=== PATIENT | male | born 1945 | race Caucasian/White ===

== ENCOUNTER → 2020-03-29 14:33 | Outpatient (CLI) | payer MEDICARE, SELFPAY ==
[2020-03-29 14:48] LABS: Alanine Aminotransferase 26 U/L (12-78); Albumin Level 4.6 g/dl (3.5-5.0); Albumin/Globulin Ratio 1.8 (1.1-1.8); Alkaline Phosphatase 80 U/L (38-126); Anion Gap 12.2 mEq/L (5-15); Aspartate Amino Transferase 24 U/L (17-59); Bilirubin,Total 0.6 mg/dl (0.2-1.3); Blood Urea Nitrogen 20 mg/dl (9-20); Calcium 9.9 mg/dl (8.4-10.2); Carbon Dioxide 29 mmol/L (22.0-30.0); Chloride 100 mmol/L (98-107); Chol/HDL Ratio 2.2 (1-3.5); Cholesterol 133 mg/dl (140-200); Estimated Glomerular Filt Rate 82 ml/min (>60); GFR (African American) 100 ML/MIN (>60); Globulin 2.5 g/dL (1.3-3.2); Glucose 160 mg/dl (74-100); HDL Cholesterol 61 mg/dl (40-60); Potassium 5.2 mmoL/L (3.5-5.1); Sodium 136 mmol/L (136-145); Total Protein,Serum 7.1 g/dl (6.3-8.2); Triglycerides 153 mg/dl (30-150); VLDL Cholesterol 31 mg/dL (0-40)
[2020-03-29 14:59] LABS: Direct LDL Cholesterol 65.96 mg/dL (100-129)
[2020-03-31 12:44] LABS: PSA, Free 0.26 ng/mL; Prostate Specific Ag 1.2 ng/mL (0.0-4.0)
== END ==
PROVIDERS: Visit Provider Family Medicine
DX: E11.9 Type 2 diabetes mellitus without complications (principal); E10.9 Type 1 diabetes mellitus without complications; E78.5 Hyperlipidemia, unspecified; N40.0 Benign prostatic hyperplasia without lower urinary tract symptoms
CPT/HCPCS: 80053; 80061; 83036; 84153; 84154

== ENCOUNTER → 2021-01-13 14:00 | Outpatient (CLI) | payer MEDICARE, SELFPAY ==
[2021-01-13 14:12] LABS: Alanine Aminotransferase 20 U/L (12-78); Albumin Level 4.3 g/dl (3.5-5.0); Albumin/Globulin Ratio 1.8 (1.1-1.8); Alkaline Phosphatase 65 U/L (38-126); Aspartate Amino Transferase 25 U/L (17-59); Bilirubin,Total 0.5 mg/dl (0.2-1.3); Blood Urea Nitrogen 21 mg/dl (9-20); Calcium 9.6 mg/dl (8.4-10.2); Carbon Dioxide 28 mmol/L (22.0-30.0); Chloride 106 mmol/L (98-107); Chol/HDL Ratio 2.6 (1-3.5); Cholesterol 123 mg/dl (140-200); Estimated Glomerular Filt Rate 73 ml/min (>60); GFR (African American) 88 ML/MIN (>60); Globulin 2.4 g/dL (1.3-3.2); Glucose 127 mg/dl (74-100); HDL Cholesterol 47 mg/dl (40-60); Sodium 142 mmol/L (136-145); Total Protein,Serum 6.7 g/dl (6.3-8.2); Triglycerides 104 mg/dl (30-150); VLDL Cholesterol 21 mg/dL (0-40)
[2021-01-13 14:23] LABS: Direct LDL Cholesterol 51.04 mg/dL (100-129)
[2021-01-13 14:30] LABS: T4 (Thyroxine) 4.4 ug/dl (5.53-11.0)
[2021-01-13 14:43] LABS: Prostate Specific Ag Screen 1.6 ng/ml (0.0-4.0); Thyroid Stimulating Hormone 1.45 uIU/mL (0.465-4.68)
[2021-01-13 14:46] LABS: Basophils # 0.1 K/mm3 (0-0.2); Basophils % 0.8 % (0.1-2.0); Eosinophils # 0.4 K/mm3 (0.0-0.4); Eosinophils % 5.4 % (0.1-12.0); Hematocrit 40.2 % (42.0-52.0); Hemoglobin 12.6 g/dL (14.1-18.0); Lymphocytes # 1.6 K/mm3 (0.7-4.5); Lymphocytes % 25.6 % (10-50); Mean Corpuscular HGB Conc 31.4 g/dL (31.8-35.4); Mean Corpuscular Hemoglobin 32.5 pg (27.0-31.2); Mean Corpuscular Volume 103.7 fl (80-94); Mean Platelet Volume 8.3 fl (7.4-10.4); Monocytes # 0.5 K/mm3 (0.1-1.0); Monocytes % 7.5 % (1.7-9.3); Neutrophils # 3.9 K/mm3 (1.8-7.8); Neutrophils % 60.7 % (37.0-80.0); Platelet Count 218 K/mm3 (142-424); Red Blood Count 3.88 M/mm3 (4.60-6.20); White Blood Count 6.4 K/mm3 (4.8-10.8)
== END ==
PROVIDERS: Visit Provider Family Medicine
DX: Z12.5 Encounter for screening for malignant neoplasm of prostate (principal); I10 Essential (primary) hypertension; Z79.899 Other long term (current) drug therapy
CPT/HCPCS: 80053; 80061; 84436; 84443; 85025; G0103

== ENCOUNTER → 2021-11-17 16:00 | Outpatient (CLI) | payer MEDICARE, SELFPAY ==
[2021-11-30 16:15] LABS: Testosterone,Free 4.1 pg/mL (6.6-18.1)
== END ==
PROVIDERS: Visit Provider Family Medicine
DX: Z00.00 Encounter for general adult medical examination without abnormal findings (principal); Z12.5 Encounter for screening for malignant neoplasm of prostate
CPT/HCPCS: 84402; 84403

== ENCOUNTER → 2022-12-14 09:18 | Outpatient (CLI) | payer MEDICARE, SELFPAY ==
[2022-12-14 14:41] LABS: Chloride 103 mmol/L (98-107); Potassium 5.7 mmoL/L (3.5-5.1); Sodium 140 mmol/L (136-145)
[2022-12-14 14:43] LABS: Alanine Aminotransferase 29 U/L (12-78); Anion Gap 9.7 mEq/L (5-15); Aspartate Amino Transferase 27 U/L (17-59); Blood Urea Nitrogen 22 mg/dl (9-20); Carbon Dioxide 33 mmol/L (22.0-30.0); Estimated Glomerular Filt Rate 72 ml/min (>60); GFR (African American) 87 ML/MIN (>60)
[2022-12-14 14:44] LABS: Albumin Level 4.5 g/dl (3.5-5.0); Albumin/Globulin Ratio 1.8 (1.1-1.8); Alkaline Phosphatase 65 U/L (38-126); Bilirubin,Total 0.7 mg/dl (0.2-1.3); Calcium 9.8 mg/dl (8.4-10.2); Chol/HDL Ratio 2.4 (1-3.5); Cholesterol 120 mg/dl (140-200); Globulin 2.5 g/dL (1.3-3.2); Glucose 165 mg/dl (74-100); HDL Cholesterol 49 mg/dl (40-60); Triglycerides 118 mg/dl (30-150); VLDL Cholesterol 24 mg/dL (0-40)
[2022-12-14 14:46] LABS: Creatinine,Urine Random 133 mg/dL (Not Estab.)
[2022-12-14 14:54] LABS: Basophils % 0.6 % (0.1-2.0); Eosinophils # 0.3 K/mm3 (0.0-0.4); Eosinophils % 4.2 % (0.1-12.0); Hematocrit 45.5 % (42.0-52.0); Lymphocytes # 1.7 K/mm3 (0.7-4.5); Lymphocytes % 25.2 % (10-50); Mean Corpuscular Volume 103.1 fl (80-94); Monocytes # 0.5 K/mm3 (0.1-1.0); Monocytes % 7.9 % (1.7-9.3); Neutrophils # 4.1 K/mm3 (1.8-7.8); Neutrophils % 62.1 % (37.0-80.0); Platelet Count 262 K/mm3 (142-424); Red Blood Count 4.41 M/mm3 (4.60-6.20); Red Cell Distribution Width 13.3 % (11.5-17.5); White Blood Count 6.7 K/mm3 (4.8-10.8)
[2022-12-14 14:56] LABS: Direct LDL Cholesterol 56.81 mg/dL (100-129)
[2022-12-14 15:16] LABS: Thyroid Stimulating Hormone 1.78 uIU/mL (0.465-4.68)
[2022-12-14 15:35] LABS: Prostate Specific Ag Screen 1.8 ng/ml (0.0-4.0)
[2022-12-14 15:54] LABS: Hemoglobin A1C 8.1 % (4.0-6.0)
== END ==
PROVIDERS: PCP Family Medicine; Visit Provider Family Medicine
DX: E11.9 Type 2 diabetes mellitus without complications (principal); E34.9 Endocrine disorder, unspecified; I10 Essential (primary) hypertension; Z12.5 Encounter for screening for malignant neoplasm of prostate; Z79.84 Long term (current) use of oral hypoglycemic drugs
CPT/HCPCS: 80053; 80061; 82043; 82570; 83036; 84443; 85025; G0103

== ENCOUNTER → 2022-12-28 11:59 | Outpatient (CLI) | payer MEDICARE, SELFPAY ==
--- NOTE | 2022-12-28 | CA_ITS ---
APPROVED REPORT Exam: Exercise Treadmill Technologist: Lupe Briceno, Ht: 5 ft 10 in Wt: 220 lbs BSA: 2.17 m2 HR: 84 bpm BP: 153/64 mmHg Rhythm: sinus rhythm with PACs Medical History Medical History: HTN, Hyperlipidemia Medications: Lisinopril,,,,, Metformin,,,,, Glipizide,,,,, Lipitor,,,,, Testosterone,,,,, Prolensa,,,,, Lancets,,,,, Blood GLUCOSE,,,,, Cardiac Risk Factors: Hyperlipidemia, HTN, Smoking, Diabetes (insulin) Stress Test Details Test: Nadine HR Resting HR: 91 bpm Max Heart Rate (APMHR): 142 bpm Max HR Achieved: 138 bpm Target HR (85% APMHR): 121 bpm % of APMHR: 97 Recovery HR: 128 bpm BP Resting BP: 143/65 mmHg Max BP: 179/86 mmHg Recovery BP: 165.0/63.0 mmHg ECG Resting ECG: sinus rhythm with PACs. Clinical Exercise duration: 03:50 min Highest Stage Achieved: Exercise capacity: 7.0 METs Stress ECG Conclusion During nadine protocol pt experinced SOA with exertion. No CP noted. PACs and PVCs noted with ventricular couplets. Test Summary REST . . . . . . . Resting REST . . . . . . . Standing REST 07:22 0.0 0.0 91 . 143/ 65 . . Stage 1 01:00 10.0 1.7 103 . . . . Stage 1 02:00 10.0 1.7 120 . . . . Stage 1 . . . . . . . Myoview Injected Stage 1 03:00 10.0 1.7 130 . 160/ 70 . . Stage 2 00:50 12.0 2.5 138 . . . Stop exercise at 03:50 RECOVERY 01:00 0.0 0.0 126 . 165/ 63 . . RECOVERY 02:00 0.0 0.0 123 . 165/ 63 . . RECOVERY 03:00 0.0 0.0 117 . 159/ 66 . . RECOVERY 04:00 0.0 0.0 113 . 159/ 66 . . RECOVERY 05:00 0.0 0.0 110 . 169/ 76 . . RECOVERY 06:00 0.0 0.0 105 . 169/ 76 . . RECOVERY 07:00 0.0 0.0 104 . 179/ 86 . . RECOVERY 08:00 0.0 0.0 100 . 154/ 64 . . RECOVERY 08:05 0.0 0.0 102 . 154/ 64 . . Electronically signed by : Carloz Gamboa MD 12/28/2022 15:33:02
--- NOTE | 2022-12-28 12:13 | NM_ITS ---
APPROVED REPORT Exam: Nuclear Stress Test Indication: a-fib Patient Location: Outpatient Stress Tech: Lupe Briceno [place] Tech:Laverne Molina AURORANoemí RT(R)(N) Ht: 5 ft 11 in Wt: 218 lbs HR: 91 bpm BP: 143/65 mmHg BSA: 2.19 m2 TID: 1.11 BMI: 30.4 History: a-fib Procedure: Patient exercised on Owen protocol 3:30 minutes and sec, resting heart rate 91 bpm, resting blood pressure 143/65 mmHg, with exercise maximum heart rate achived was 138 bpm which is 97 % of the maximum predicted heart rate and blood pressure was 179/86 mmHg. Test was stopped due to fatigue..soa. Patient denied any complaint of chest pain. Patient has Adequate exercise capacity, achieved 7.0 METs of workload on treadmill, the blood pressure response to exercise was Adequate. Electrocardiogram Resting electrocardiogram showed sinus rhythm, with exercise there is less than 1.[address] segment depression noted from the baseline EKG. The EKG portion of the exercise Myoview is negative for ischemia. Cardiac Stress and Resting SPECT Images: Cardiac Stress and Resting SPECT images were obtained using technetium 99m Myoview 31.4 mCi stress and 10.95 mCi at rest. Gated SPECT analysis of segmental wall motion and calculation of the ejection fraction also done. Prone images were also obtained. Cardiac stress and rest respectively show uniform myocardial activity without segmental perfusion abnormality, computer derived ejection fraction is 45% with no regional wall motion normality, right ventricle is normal size and contractility. Conclusion: 1. The EKG portion of the exercise Myoview is negative for ischemia, patient has adequate exercise capacity achieved 7 METS of workload on treadmill, the blood pressure response to exercise was adequate, there was no exercise-induced chest discomfort. 2. No scintigraphic evidence of reversible ischemia seen, computer derived ejection fraction is 45% with no regional wall motion abnormality, right ventricle is normal size and contractility. 3. Normal exercise Myoview study. Electronically signed by : Carloz Gamboa MD 12/28/2022 15:36:02
== END ==
PROVIDERS: PCP Family Medicine; Visit Provider Family Medicine
DX: R07.9 Chest pain, unspecified (principal)
CPT/HCPCS: 78452; 93017; A9502

== ENCOUNTER 2023-11-11 21:55 | Outpatient (CLI) | payer MEDICARE, SELFPAY ==
[2023-11-11 20:08] LABS: Basophils # 0.1 K/mm3 (0-0.2); Basophils % 0.6 % (0.1-2.0); Eosinophils # 0.2 K/mm3 (0.0-0.4); Hemoglobin 14.9 g/dL (14.1-18.0); Lymphocytes # 1.6 K/mm3 (0.7-4.5); Lymphocytes % 20.5 % (10-50); Mean Corpuscular HGB Conc 32.5 g/dL (31.8-35.4); Mean Corpuscular Hemoglobin 34.6 pg (27.0-31.2); Mean Corpuscular Volume 106.4 fl (80-94); Mean Platelet Volume 9.9 fl (7.4-10.4); Monocytes # 0.6 K/mm3 (0.1-1.0); Monocytes % 7.3 % (1.7-9.3); Neutrophils # 5.3 K/mm3 (1.8-7.8); Neutrophils % 68.5 % (37.0-80.0); Platelet Count 218 K/mm3 (142-424); Red Blood Count 4.32 M/mm3 (4.60-6.20); Red Cell Distribution Width 13.1 % (11.5-17.5); White Blood Count 7.8 K/mm3 (4.8-10.8)
[2023-11-11 20:37] LABS: Hemoglobin A1C 7.8 % (4.0-6.0)
[2023-11-12 12:01] LABS: Prostate Specific Ag Screen 2.1 ng/ml (0.0-4.0)
== END 2023-11-11 23:59 ==
LOC: LAB.DROPOF 21:59
PROVIDERS: PCP Family Medicine; Visit Provider Family Medicine
DX: E11.9 Type 2 diabetes mellitus without complications (principal); Z79.84 Long term (current) use of oral hypoglycemic drugs; Z12.5 Encounter for screening for malignant neoplasm of prostate
CPT/HCPCS: 83036; 85025; G0103

== ENCOUNTER 2024-09-17 19:17 | Outpatient (CLI) | payer MEDICARE, SELFPAY ==
[2024-09-17 20:33] LABS: Creatinine,Urine Random 66 mg/dL (Not Estab.)
[2024-09-17 20:46] LABS: Microalbumin < 6.000 mg/L (0-16.7)
[2024-09-17 21:02] LABS: Alanine Aminotransferase 29 U/L (12-78); Alkaline Phosphatase 63 U/L (38-126); Aspartate Amino Transferase 29 U/L (17-59); Bilirubin,Total 0.5 mg/dl (0.2-1.3); Blood Urea Nitrogen 26 mg/dl (9-20); Calcium 9.8 mg/dl (8.4-10.2); Chloride 103 mmol/L (98-107); Chol/HDL Ratio 1.9 (1-3.5); Cholesterol 100 mg/dl (140-200); Estimated Glomerular Filt Rate 58 ml/min (>60); GFR (African American) 70 ML/MIN (>60); Glucose 117 mg/dl (74-100); HDL Cholesterol 53 mg/dl (40-60); Sodium 140 mmol/L (136-145); Total Protein,Serum 6.7 g/dl (6.3-8.2); Triglycerides 96 mg/dl (30-150); VLDL Cholesterol 19 mg/dL (0-40)
[2024-09-17 21:04] LABS: Albumin Level 4.3 g/dl (3.5-5.0); Albumin/Globulin Ratio 1.8 (1.1-1.8); Carbon Dioxide 30 mmol/L (22.0-30.0); Globulin 2.4 g/dL (1.3-3.2)
[2024-09-17 21:13] LABS: Direct LDL Cholesterol 37.25 mg/dL (100-129)
[2024-09-17 21:23] LABS: Anion Gap 12.3 mEq/L (5-15); Potassium 5.3 mmoL/L (3.5-5.1)
== END 2024-09-17 23:59 | disposition home or self-care (01) ==
LOC: LAB.DROPOF 19:17
PROVIDERS: PCP Family Medicine; Visit Provider Family Medicine
DX: E11.9 Type 2 diabetes mellitus without complications (principal)
CPT/HCPCS: 80053; 80061; 82043; 82570

== ENCOUNTER 2025-05-04 10:54 | Outpatient (CLI) | payer MEDICARE, SELFPAY ==
--- OUTSIDE RECORDS SUMMARY | 2025-05-04 10:56 | XMS_ITS | Encounter Summary ---
Author Organization [facility] Address [address] [place] [address] Care Team Providers Care Clerk Of Court Name Role Phone Yusuf Lind MD Primary Care Provider Stacia Bravo RN Unavailable [phone] Yobani Rosario MD Unavailable Oly Albert HEALTHCARE ECONOMICS CONSULTANT Unavailable [phone] Luiz Roberts MD Unavailable [phone] Rina Youssef HEALTHCARE ECONOMICS CONSULTANT Unavailable Unavailable Grady Longoria MD Unavailable [phone] Encounter Details Date Type Department Care Team (Late st Contact Info) Description 09/21/2021 E-Visit [facility] Information Desk [address] [place] [address] [id number] Mychart, Generic Provider Social History Tobacco Use Types Packs/Day Years Used Date Smoking Tobacco: Former Cigars Smokeless Tobacco: Never Comments:quit smoking cigars about 2 years ago Alcohol Use Standard Drinks/Week Comments Yes 11.7 (1 standard drink = 0.6 oz pure alcohol) daily PHQ-2 Answer Date Recorded PHQ-9 Auto Total 0 06/24/2020 Sex and Gender Information Value Date Recorded Sex Assigned at Male 06/23/2020 9:46 AM EDT Legal Sex Male 11:13 AM EDT Gender Identity Male 06/23/2020 9:46 AM EDT Sexual Orientation Not on file COVID-19 Exposure Response Date Recorded In the last month, have you been in contact with someone who was confirmed or suspected to have Coronavirus / COVID-19? No / Unsure 09/21/2021 3:00 PM EST documented as of this encounter Plan of Treatment Not on file documented as of this encounter Visit Diagnoses Not on filedocumented in this encounter Additional Health Concerns Assessment Noted Time PHQ-9 Depression Total Score: 1 06/24/20 20 12:58 PM EDT documented as of this encounter Care Teams Clerk Of Court Relationship Specialty Start Date End Date Yusuf Lind MD [address] [place] [address] [address] [place] [address] PCP - General Internal Medicine 06/24/20 Stacia Bravo, JOANA [address] [facility] [place] [address] Registered Nurse 08/13/21 Yobani Rosario MD [address] [place] [address]. [address] [place] [address] Critical Care Medicine 08/23/21 Oly Albert NP [address] [place] [address] Nurse Practitioner Nurse Practitioner, Acute Care 09/22/21 Luiz Roberts MD [address] [place] [address] [address] [place] [address] Interventional Cardiology 10/20/21 Rina Youssef NP [address] [place] [address] [address] [place] [address] Nurse Practitioner Nurse Practitioner, Acute Care 10/26/21 Grady Longoria MD [address] [place] [address] [place] [address] Orthopedic Surgery 10/14/22 documented as of this encounter
--- OUTSIDE RECORDS SUMMARY | 2025-05-04 10:57 | XMS_ITS | Clinical Summary ---
Author Organization [facility] Address [address] [place] [address] Care Team Providers Care Creative Consultant Name Role Phone Yusuf Lind MD Primary Care Provider [phone] Stacia Bravo RN Unavailable [phone] Yobani Rosario MD Unavailable [phone] Oly Albert SPORTS BOOK WRITER Unavailable [phone] Luiz Roberts MD Unavailable [phone] Rina Youssef SPORTS BOOK WRITER Unavailable Unavailable Grady Longoria MD Unavailable [phone] Allergies Active Allergy Reactions Criticality Noted Date Comments Oxycodone-Acetaminop hen Nausea Only,Other (See Comments) 09/11/2016 I slept continually. -nausea occurred upon standing Oxycodone-Aspirin Nausea Only,Other (S ee Comments) 09/11/2016 I slept continually. -nausea occurred upon standing Medications Accu-Chek Desire Plus test strp Strip TEST BID 0 Active glipiZIDE (GLUCOTROL) 10 mg CR tablet daily. 0 Active metFORMIN (GLUCOPHAGE) 500 mg tablet 1,000 mg 2 times daily. 0 Active pioglitazone (ACTOS) 15 mg Tablet Take 1 Tab by mouth daily. 90 Tab 1 0 Active Additional Information Patient not taking.Reported on 10/31/2021 lisinopriL (PRINIVIL, ZESTRIL) 20 mg tablet 0 Active aspirin 81 mg tablet Take 1 Tablet (81 mg total) by mouth daily. 100 Tablet 1 Active atorvastatin (LIPITOR) 40 mg Tablet Take 1 Tablet by mouth every evening. 30 Tablet 1 Active Active Problems Problem Noted Date Diagnosed Date TIA (transient ischemic attack) 10/31/2021 Benign essential hypertension 10/31/2021 Type 2 diabetes mellitus wit hout complication, without long-term current use of insulin 07/11/2020 Hypercholesterolemia 07/11/2020 Generalized osteoarthritis of multiple sites 02/2020 Dysgeusia 07/11/2020 S/P bilateral hip replacements 07/11/2020 Primary osteoarthritis of right hip 09/17/2016 Resolved Problems Problem Noted Date Diagnosed Date Resolved Date Stroke-like symptom 08/13/2021 11/13/19 22 Stroke-like symptoms 08/13/2021 022 Immunizations Immunization Administration Dates Next Due Covid19 Sars-Cov-2 Vaccine 1 2+yrs Old (PFIZER) 07/23/2022 [id number] Vaccine 1 2+YRS Old (PFIZER Purple) 07/18/2021,07/18/2021,07/08/2021,2020,12/24/2020,12/08/2020,12/03/2020,0 12/03/2020 Influenza 07/23/2022, 1,07/07/2021,2019,07/07/2014 Influenza (whole) 07/07/2014 Influenza, High Dose Seasona l, Preservative Free (Fluzone HD 65yrs and over) 06/08/2020 Pneumococcal 20-valent Conju gate Vaccine (PREVNAR) 10/31/2021 Pneumococcal Conjugate 13 va lent (PREVNAR) 11/05/2020 Family History Medical History Relation Name Comments No Known Problems Father No Known Problems Mother Anesthesia Complications Neg Hx Heart Problems Neg Hx Relation Name Status Comments Father Mother Social History Tobacco Use Types Packs/Day Years Used Date Smoking Tobacco: Former Cigars Smokeless Tobacco: Never Tobacco Cessation:Counseling Given: Yes Comments:quit smoking cigars about 2 years ago Alcohol Use Standard Drinks/Week Comments Yes 11.7 (1 standard drink = 0.6 oz pure alcohol) daily PHQ-2 Answer Date Recorded PHQ-9 Auto Total 0 10/31/2021 Sex and Gender Information Value Date Recorded Sex Assigned at Male 06/23/2020 9:46 AM EDT Legal Sex Male 11:13 AM EDT Gender Identity Male 06/23/2020 9:46 AM EDT Sexual Orientation Not on file Last Filed Vital Signs Vital Sign Reading Time Taken Comments Blood Pressure 110/70 09/22/2021 11:57 AM EST Pulse 76 09/22/2021 11:57 AM EST Temperature 36.4 C (97.6 F) 09/22/2021 11:57 AM EST Respiratory Rate 12 09/22/2021 11:57 AM EST Oxygen Saturation 95% 09/22/2021 11:57 AM EST Inhaled Oxygen Concentration - - Weight 100.2 kg (221 lb) 10/31/2021 2:41 PM EST Height 170.2 cm (5' 7 ) 10/31/2021 2:41 PM EST Body Mass Index 34.61 10/31/2021 2:41 PM EST Plan of Treatment Health Maintenance Due Date Last Done Comments Diabetes Mellitus Foot Care (Yearly) 1944 Diabetes Mellitus Microalbum in (Yearly) 1944 Tetanus Vaccination (Every 1 0 Years) 1962 Zoster-RZV(Shingrix) (1 of 2) 1994 RSV Vaccines (1 - 1-dose 75+ series) 2019 Diabetes A1c Monitoring 02/11/2022 08/14/2021, 07/27 Lipid Monitoring 08/14/2022 08/14/2021, 07/27/2020 Renal Monitoring 08/15/2022 08/15/2021, 05/2021, 08/13/2021, Additional history exists Fall Risk Assessment 10/31/2022 10/31/2021 COVID-19 Vaccine ( season) 2024 07/23/2022, 07/18/2021, 07/18/2021, Additional history exists Advance Care Planning 10/07/2024 Depression Screening 10/07/2024 10/31/2021, 06/24/20 20 Influenza Vaccination (#1) 06/07/202507/23, 09/21/2021, 07/07/2021, Additional history exists Diabetes Mellitus Hemoglobin A1c (Yearly) Discontinued 08/14/2021, 07/27/2020 Lipid Screening Discontinued 08/14/2021, 07/27/2020 Pneumococcal Vaccine: 50+ Years Completed , 11/05/2020 Influenza Vaccination (Yearly) Discontinued 1 , 09/21/2021, 07/07/2021, Additional history exists Medical Devices Implanted Type Area Disability Hearing Officer Device Identifier Shelf Expiration Date Model / Serial / Lot Altrx Acetabular Liner 36mm Implanted:Qty: 1 on 07/06/2014 by Grady Longoria MD at [facility] Left: Hip 04/05/2019 1221-36-154 / / [id number] Pinn Sector W/Gription 54mm Implanted:Qty: 1 on 07/06/2014 by Grady Longoria MD at [facility] Left: Hip * J \T\ J DEPUY 06/06/2024 1217-32-054 / / [id number] Femoral Stem Tri-Lock 09/19 109mm Implanted:Qty: 1 on 07/06/2014 by Grady Longoria MD at [facility] Left: Hip * USE JJ DEPU 05/06/2024 1012-04-070 / / [id number] Hip Delta Cer Hd 09/19 36mm Implanted:Qty: 1 on 07/06/2014 by Grady Longoria MD at [facility] Left: Hip * J \T\ J DEPUY 03/06/2019 [id number] / / [id number] Hip Total Con Tier 3 Depuy Implanted:Qty: 1 on 07/06/2014 by Grady Longoria MD at [facility] Left: Hip * J \T\ J DEPUY HIPS TIER 3 / / TOTAL HIP Pinn Sector W/Gription 54mm Implanted:Qty: 1 on 09/19/2016 by Grady Longoria MD at [facility] Right: Hip * J \T\ J DEPUY 07/06/2026 [id number] / / [id number] Altrx Acetabular Liner 36mm Implanted:Qty: 1 on 09/19/2016 by Grady Longoria MD at [facility] Right: Hip * J \T\ J DEPUY 07/06/2021 [id number] / / [id number] Stem Fem Std Collar Corail 12 Implanted:Qty: 1 on 09/19/2016 by Grady Longoria MD at [facility] Right: Hip * J \T\ J DEPUY 07/06/2021 [id number] / / [id number] Hd Oxinium Fem 09/19 36 Mm -3 Implanted:Qty: 1 on 09/19/2016 by Grady Longoria MD at [facility] Right: Hip * SUN \T\ NEPHEW 07/24/2026 [id number] / / [id number] Procedures Procedure Name Priority Date/Time Associated Diagnosis Comments BASIC METABOLIC PANEL (BMP=EP1) Routine 08/15/2021 1:42 PM EST LIPID PROFILE Routine 08/14/2021 4:46 AM EST HGB, A1C (GLYCOHEMOGLOBIN) Routine 08/14/2021 4:46 AM EST from Last 3 Months or Most Recently Relevant to Health Maintenance Results * (ABNORMAL) BASIC METABOLIC PANEL (BMP=EP1) (08/15/2021 1:42 PM EST) Sodium 139 135 - 146 mmol/L [facility] Potassium 4.8 3.5 - 5.1 mmol/L [facility] Chloride 103 98 - 110 mmol/L [facility] CO2 28 22 - 29 mmol/L [facility] Anion Gap 8 5 - 13 mmol/L [facility] Comment:Anion gap calculatio n does not include potassium (K+) value. BUN 20 7 - 25 mg/dL [facility] Creatinine 1.13 0.50 - 1.30 mg/dL [facility] Glucose 169(H) 71 - 99 mg/dL [facility] GFR MDRD Af Amer 76 See Note [facility] Comment: GFR is estimated using Creatinine, age, gender and race. Patient's values should be interpreted as a trend. Between 30 and 90 ml/min/1.73m2, clinical correlation is needed. For additional information: www.kidney.org Calcium 9.8 8.8 - 10.9 mg/dL [facility] GFR MDRD Non Af Amer 63 See Note [facility] Comment: GFR is estimated using Creatinine, age, gender and race. Patient's values should be interpreted as a trend. Between 30 and 90 ml/min/1.73m2, clinical correlation is needed. For additional information: www.kidney.org BUN/Creatinine Ratio 18 [facility] Serum 08/15/2021 1:42 PM EST 08/15/2021 2:45 PM EST us Jairon Fu MD CHEMISTRY ORDERABLES Final Result Performing Organization Address City/State/[facility] Co de Phone Number [facility] [address] * (ABNORMAL) LIPID PROFILE (08/14/2021 4:46 AM EST) Chol/HDL Ratio 2.4 0 - 5 [facility] Cholesterol 104(L) 125 - 199 mg/dL [facility] Comment: TOTAL CHOLESTEROL INTERPRETATION: Less than 200 mg/dL Desireable 200-239 mg/dL Borderline Greater or Equal to 240 mg/dL High LDL Calculated 48 0 - 100 mg/dL [facility] Comment: LDL CHOLESTEROL INTERPRETATION: Less than 100 mg/dL Optimal 100-129 mg/dL Near optimal/above optimal 130-159 mg/dL Borderline High 160-189 mg/dL High Greater or Equal to 190 mg/dL Very High HDL 44 40 - 180 mg/dL [facility] Comment: HDL CHOLESTEROL INTERPRETATION: Less than 40 mg/dL Low Greater than 60 mg/dL Desirable Triglycerides 62 0 - 149 mg/dL [facility] Comment: TOTAL TRIGLYCERIDE INTERPRETATION: Less than 150 mg/dL Normal 150-199 mg/dL Borderline HIgh 200-499 mg/dL High Greater or Equal to 500 mg/dL Very High Serum 08/14/2021 4:46 AM EST 08/15/2021 1:56 PM EST us Yobani Rosario MD CHEMISTRY ORDERABLES F inal Result Performing Organization Address [facility] Co de Phone Number [facility] [address] * (ABNORMAL) HGB, A1C (GLYCOHEMOGLOBIN) (08/14/2021 4:46 AM EST) Hgb A1C 7.1(H) 4.0 - 5.6 % [facility] Comment: Reference Ranges for Hgb A1c: Increased risk for diabetes: 5.7-6.4% Probable diabetes: >=6.5% Desired control for previously diagnosed diabetics: <7.0% Many conditions can affect the Hgb A1c value including hemolysis, recent transfusion, hemoglobin variants, thalassemias, severe chronic hepatic and renal disease and iron deficiency among others. Please note that results from this assay are invalid for patients with abnormal amounts of Hemoglobin (HbF). Results must be interpreted in the proper clinical context. This method is certified by the National Glycohemoglobin Standardization program (NGSP) and traceable to [facility]. Estimated Average Glucose 157(H) 68 - 114 mg/dL [facility] Whole Blood 08/14/2021 4:46 AM EST 08/15/2021 1:57 PM EST us Jairon Fu MD CHEMISTRY ORDERABLES Final Result Performing Organization Address [facility] de Phone Number [facility] [address] from Last 3 Months or Most Recently Relevant to Health [place] [address] [place] [address] [facility] MEDICARE HUMANA MEDICARE HUMANA MEDICARE HUMANA MEDICARE ANTHEM MEDICARE ANTHEM Advance Directives For more information, please contact: [phone] * Full Code (Latest Code Status on File) Date Activated Date Inactivated Comments 08/13/2021 8:18 PM No automated c hest compression devices for VAD Patients * Full Code Date Activated Date Inactivated Comments 09/19/2016 9:55 AM 09/20/2016 4:07 PM * Full Code Date Activated Date Inactivated Comments 07/06/2014 10:42 AM 07/07/2014 7:06 PM Care Teams Creative Consultant Relationship Specialty Start Date End Date Yusuf Lind MD [address] [place] [address] PCP - General Internal Medicine 06/24/20 Stacia Bravo, JOANA [address] [place] [address] Registered Nurse 08/13/21 [place] [address] [place] [address] [address] [place] [address] Critical Care Medicine 08/23/21 [place] [address] [place] [address]. [address] [place] [address] Nurse Practitioner Nurse Practitioner, Acute Care 09/22/21 Luiz Roberts MD [address] [place] [address] [address] [place] [address] Interventional Cardiology 10/20/21 Rina Youssef NP [address] [place] [address] [address] [place] [address] Nurse Practitioner Nurse Practitioner, Acute Care 10/26/21 Grady Longoria MD [address] [facility] [place] [address] [place] [address] Orthopedic Surgery 10/14/22
--- NOTE | 2025-05-04 10:58 | XR_ITS ---
FINAL REPORT CLINICAL HISTORY: Left knee pain FINDINGS: AP, lateral and oblique views of the left knee were obtained. There is no prior exam for comparison. There is no acute fracture or dislocation. There is degenerative joint disease. There is no acute soft tissue abnormality. There is no joint effusion. IMPRESSION: Degenerative joint disease without acute osseous abnormality of the left knee. Reviewed, Interpreted and Dictated by Chandrika Lopez MD Transcribed by Tammi Fried Authenticated and [facility]
--- OUTSIDE RECORDS SUMMARY | 2025-05-04 10:58 | XMS_ITS | Encounter Summary ---
Author Organization [facility] Address [address] [place] [address] Care Team Providers Care Candy Butcher Name Role Phone Amanuel Staples MD Primary Care Provider Yusuf Lind MD Primary Care Provider [phone] Stacia Bravo RN Unavailable [phone] Yobani Rosario MD Unavailable Oly Albert SENIOR NET APPLICATION DEVELOPER Unavailable [phone] Luiz Roberts MD Unavailable [phone] Rian Youssef SENIOR NET APPLICATION DEVELOPER Unavailable Unavailable Grady Longoria MD Unavailable [phone] Reason for Visit * Reason Onset Date Comments Questions 05/01/2013 Encounter Details Date Type Department Care Team (Late st Contact Info) Description 05/01/2013 Telephone [facility] [address] [facility] [address] [place] [address] Celeste Lange MD [address] [facility] [address] [place] [address] Questions Social History Tobacco Use Types Packs/Day Years Used Date Smoking Tobacco: Never Alcohol Use Standard Drinks/Week Comments Not Asked 0 (1 standard drink = 0.6 oz pur e alcohol) Sex and Gender Information Value Date Recorded Sex Assigned at Male 06/23/2020 9:46 AM EDT Legal Sex Male 11:13 AM EDT Gender Identity Male 06/23/2020 9:46 AM EDT Sexual Orientation Not on file documented as of this encounter Miscellaneous Notes * Telephone Encounter - La Rangel - 05/01/2013 5:01 PM EDT rx called in * Telephone Encounter - Celeste Lange MD - 05/01/2013 4:57 PM EDT Please call in vicodin 1 tablet twice a day quant of 60 tabs to his pharmacy * Telephone Encounter - Diann Salter - 05/01/2013 9:44 AM EDT HE HAS BEEN TAKING TRAMADOL EVERY 6 HOURS AND THIS IS NOT HELPING WITH PAIN CONTROL. HE HAD TO GET UP IN THE MIDDLE OF THE NIGHT TO TAKE A PILL. HE WOULD LIKE TO KNOW IF THERE IS SOMETHING ELSE HE COULD TRY? documented in this encounter Plan of Treatment Not on file documented as of this encounter Visit Diagnoses Not on filedocumented in this encounter Care Teams Candy Butcher Relationship Specialty Start Date End Date Amanuel Staples MD [address] [place] [address] PCP - General Family Medicine 03/13/13 06/23/20 Yusuf Lind MD [address] [place] [address] PCP - General Internal Medicine 06/24/20 Stacia Bravo, JOANA [address] [place] [address] Registered Nurse 08/13/21 Yobani Rosario MD [address] [place] [address] [address] [place] [address] Critical Care Medicine 08/23/21 Oly Albert NP [address] [place] [address] [place] [address] Nurse Practitioner Nurse Practitioner, Acute Care 09/22/21 Luiz Roberts MD [address] [place] [address] [address] [place] [address] Interventional Cardiology 10/20/21 Rina Youssef NP [address] [place] [address] [address] [place] [address] Nurse Practitioner Nurse Practitioner, Acute Care 10/26/21 Grady Longoria MD [address] [facility] [place] [address] Orthopedic Surgery 10/14/22 documented as of this encounter
--- OUTSIDE RECORDS SUMMARY | 2025-05-04 10:58 | XMS_ITS | Clinical Summary ---
Author Organization [facility] Address [address] [place], [place] [address] Phone Care Team Providers Care Supervisor Pre Wave Name Role Phone Outside, Provider Unavailable [phone] Conditions or Problems No information available. Medications No information available. Medications Administered No information available. Allergies, Adverse Reactions, Alerts No information available. Results No information available. Plan of Care No information available. Procedures No information available. Vital Signs No information available. Immunizations No information available. Advance Directives No information available.
--- OUTSIDE RECORDS SUMMARY | 2025-05-04 10:58 | XMS_ITS | Clinical Summary ---
Author Organization [facility] Address [address] [place] [id number] Care Team Providers Care Clinical Coordinator Name Role Phone Pcp, No Primary Care Provider [phone] Source Comments This information has been disclosed to you from confidential records protectedfrom disclosure by state law. You shall make no further disclosure of thisinformation without the specific, written, and informed release of theindividual to whom it pertains, or as otherwise permitted by law. A generalauthorization for the release of medical or other information is not sufficientfor the purposes of therelease of HIV test results or diagnoses. [id number] Allergies Active Allergy Reactions Criticality Noted Date Comments Oxycodone-Acetaminop hen Nausea Only,Other (See Comments) 09/11/2016 I slept continually. -nausea occurred upon standing Medications atorvastatin (LIPITOR) 20 MG tablet 11/05/2018 Active glipiZIDE (GLUCOTROL) 10 MG 24 hr tablet 01/09/2019 Act gail lisinopril (PRINIVIL,ZESTRI L) 20 MG tablet 12/11/2018 Act gail metFORMIN (GLUCOPHAGE) 850 MG tablet 11/19/2018 Active multivit-min/connie luz fumarate (MULTI VITAMIN ORAL) Take by mouth. Active cinnamon bark (CINNAMON) 500 mg capsule Take 500 mg by mouth daily. Active Social History Tobacco Use Types Packs/Day Years Used Date Smoking Tobacco: Former Cigarettes Q uit: 01/16/1984 Smokeless Tobacco: Former Quit: 01/15/1989 Alcohol Use Standard Drinks/Week Comments Yes 0 (1 standard drink = 0.6 oz pur e alcohol) Sex and Gender Information Value Date Recorded Sex Assigned at Not on file Legal Sex Male 7:53 PM EST Gender Identity Not on file Sexual Orientation Not on file Last Filed Vital Signs Vital Sign Reading Time Taken Comments Blood Pressure 177/70 01/15/2019 10:24 AM EDT Pulse 66 01/15/2019 10:24 AM EDT Temperature - - Respiratory Rate - - Oxygen Saturation - - Inhaled Oxygen Concentration - - Weight 101.6 kg (224 lb) 01/15/2019 10:24 AM EDT Height 180.3 cm (5' 11 ) 01/15/2019 10:24 AM EDT Body Mass Index 31.24 01/15/2019 10:24 AM EDT Plan of Treatment [place] [address] [employer] MEDICARE Care Teams Clinical Coordinator Relationship Specialty Start Date End Date Pcp, No No Address PCP - General Pediatrics 01/15/19
--- OUTSIDE RECORDS SUMMARY | 2025-05-04 10:59 | XMS_ITS | Continuity of Care Document ---
Author Organization [facility] Address [facility] [place] [address] Phone Care Team Providers Care Document Management Analyst Name Role Phone Sajan Alex MD Primary Care Provider [phone] Encounters Date Type Department Care Team Description 09/23/2024 2:00 PM EST Office Visit [facility] [address] [place] [address] Atif Burnett MD Photoaging of skin (Primary Dx); Screening for skin cancer; Lentigines; SK (seborrheic keratosis); Kemp angioma; History of basal cell carcinoma; History of squamous cell carcinoma; AK (actinic keratosis) 09/20/2024 Travel 09/01/2024 Orders Only [facility] [address] [address] Rosic, Jayy, CLINICAL TEAM MANAGER Obstructive sleep apnea (Primary Dx) 09/01/2024 Orders Only [facility] [address] [address] Rosic, Jayy, CLINICAL TEAM MANAGER Obstructive sleep apnea (Primary Dx) 08/31/2024 2:00 PM EST Office Visit [facility] [address] [address] Rosic, Jayy, CLINICAL TEAM MANAGER Obstructive sleep apnea (Primary Dx); Tiredness; Essential hypertension 08/28/2024 Travel 08/05/2024 Orders Only [facility] NPTFTT [address] [place] [phone] Corinne Calvin PA-C Low testosterone in male; Hypogonadism male; Low libido 08/05/2024 3:00 PM EDT Clinical Support [facility] NP[facility] [address] [place] [phone] Suzanne Quijano MA 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) 08/04/2024 Travel 07/31/2024 Refill [facility] [address] [address] Corinne Calvin PA-C Medication Refill 07/23/2024 3:30 PM EDT Office Visit [facility] [address] [address] Corinne Cavlin PA-C 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); Hypogonadism male; Low libido 07/19/2024 Travel 04/22/2024 2:00 PM EDT Office Visit [facility] [address] [phone] Everett Webster PA Hypogonadism 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) 04/21/2024 Travel 04/02/2024 8:45 AM EDT Office Visit [facility] [address] [place] [address] Atif Burnett MD Photoaging of skin (Primary Dx); AK (actinic keratosis); Lentigines; Seborrheic keratoses; Sebaceous gland hyperplasia; Kemp angioma; History of basal cell carcinoma; History of squamous cell carcinoma; Screening for skin cancer 03/31/2024 Travel 03/12/2024 8:10 AM EDT - 03/12/2024 11:59 PM EDT Hospital Encounter [facility] [address] [place] [address] Low testosterone in male Discharge Disposition: Home or Self Care 02/05/2024 Orders Only [facility] [address] [address] Warning, Everett A, PA 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) 02/03/2024 9:12 AM EDT - 02/03/2024 11:59 PM EDT Hospital Encounter [facility] [address] [address] Low testosterone in male Discharge Disposition: Home or Self Care 01/29/2024 Orders Only [facility] NPTF[facility] [address] [place] [address] Warning, Everett A, PA Low libido (Primary Dx); Low testosterone in male 01/27/2024 9:31 AM EDT - 01/27/2024 11:59 PM EDT Hospital Encounter [facility] [address] [address] Low libido Discharge Disposition: Home or Self Care 01/22/2024 1:30 PM EDT Office Visit [facility] NPT[facility] [address] [place] [phone] Warning, Everett A, PA Low libido (Primary Dx) 01/19/2024 Travel 10/03/2023 9:00 AM EST Office Visit [facility] [address] [place] [address] Atif Burnett MD Photoaging of skin (Primary Dx); Screening for skin cancer; History of basal cell carcinoma; History of squamous cell carcinoma; AK (actinic keratosis); Lentigines; Seborrheic keratoses; Sebaceous gland hyperplasia; Kemp angioma; Inflamed skin tag; Other disturbances of skin sensation 09/29/2023 Travel 08/23/2023 Orders Only [facility] Sleep Disorder Center [address] [place] [address] Rosic, Jayy, CLINICAL TEAM MANAGER Obstructive sleep apnea (Primary Dx) 08/23/2023 7:45 AM EST Office Visit [facility] [address] [address] Rosic, Jayy, CLINICAL TEAM MANAGER Obstructive sleep apnea (Primary Dx); Tiredness; Hyperlipidemia, unspecified hyperlipidemia type 08/20/2023 Travel 01/25/2023 11:00 AM EDT Office Visit [facility] [address] [address] Atif Burnett MD Neoplasm of unspecified behavior of bone, soft tissue, and skin (Primary Dx); AK (actinic keratosis); History of squamous cell carcinoma; Photoaging of skin; Lentigines; Seborrheic keratoses; Kemp angioma; History of basal cell carcinoma; Sebaceous gland hyperplasia 01/20/2023 Travel 08/15/2022 9:40 AM EST Anesthesia Event [facility] [address] [place] [address] Jonah Riggs MD Giles Lucía Flynn, DYE HOUSE WORKER 08/15/2022 Travel 08/15/2022 9:30 AM EST - 08/15/2022 9:45 AM EST Surgery [facility] [address] [place] [address] Dash Hartley MD CATARACT EXTRACTION WITH PHACOEMULSIFICATION AND INTRAOCULAR LENS 08/15/2022 8:30 AM EST - 08/15/2022 10:27 AM EST Hospital Encounter [facility] [address] 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) 08/10/2022 2:00 PM EDT Office Visit [facility] [address] [address] Roselli, Jayy, CLINICAL TEAM MANAGER Obstructive sleep apnea (Primary Dx); Tiredness; Type 2 diabetes mellitus without complication, unspecified whether terminal press operator insulin use (HCC); Essential hypertension 07/27/2022 8:15 AM EDT Office Visit [facility] [address] [place] [address] Atif Burnett MD Neoplasm of unspecified behavior of bone, soft tissue, and skin (Primary Dx); Actinic keratosis; Lentigines; Seborrheic keratoses; Sebaceous gland hyperplasia; Kemp angioma; History of basal cell carcinoma; History of squamous cell carcinoma; Photoaging of skin 06/13/2022 Travel 06/13/2022 7:30 AM EDT - 06/13/2022 7:45 [place] [address] Dash Hartley MD CATARACT EXTRACTION WITH PHACOEMULSIFICATION AND INTRAOCULAR LENS 06/13/2022 7:30 AM EDT [place] [address] Yusuf Barron MD Costantini, Carey H, MD 06/13/2022 6:35 AM EDT - 06/13/2022 8:23 AM EDT Hospital Encounter [facility] [place] [phone] Dash Hartley MD Discharge Disposition: Home or Self Care 06/08/2022 Travel 01/25/2022 8:30 AM EDT Office Visit [facility] [address] [address] Atif Burnett MD Inflamed seborrheic keratosis (Primary Dx); Other disturbances of skin sensation; Actinic keratosis; History of basal cell carcinoma; History of squamous cell carcinoma; Screening for skin cancer; Photoaging of skin; Lentigines; Seborrheic keratoses; Sebaceous gland hyperplasia; Kemp angioma; Neoplasm of unspecified behavior of bone, soft tissue, and skin 10/17/2021 2:45 PM EST Office Visit [facility] [address] [address] Corinne Zaragoza MD Obstructive sleep apnea (Primary Dx) 09/04/2021 Travel 09/04/2021 2:00 PM EST Clinical Support [facility] [address] [address] Atif Burnett MD Visit for suture removal (Primary Dx) 08/28/2021 2:00 PM EST Procedure visit [address] [place] [address] Atif Burnett MD 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) 08/03/2021 Orders Only [facility] [address] [address] Atif Burnett MD AK (actinic keratosis) (Primary Dx) 07/27/2021 Travel 07/27/2021 8:00 AM EDT Office Visit [facility] [address] [place] [address] Atif Burnett MD Neoplasm of unspecified behavior of bone, soft tissue, and skin (Primary Dx); Actinic keratosis; Kemp angioma; Lentigines; Screening for skin cancer; Photoaging of skin; History of basal cell carcinoma; History of squamous cell carcinoma; Sebaceous gland hyperplasia 01/19/2021 Travel 01/19/2021 9:00 AM EDT Procedure visit [address] [address] Atif Burnett MD Keratoacanthoma (Primary Dx); AK (actinic keratosis); Lentigines; Kemp angioma; Sebaceous gland hyperplasia; Photoaging of skin; Screening for skin cancer 01/04/2021 Orders Only [address] [address] Atif Burnett MD 12/29/2020 Travel 12/29/2020 9:45 AM EDT Office Visit [address] [address] Atif Burnett MD Neoplasm of unspecified behavior of bone, soft tissue, and skin (Primary Dx) 12/02/2020 Travel 10/12/2020 8:45 AM EST Office Visit [facility] [address] [address] Tammi Finch APRN Obstructive sleep apnea (Primary Dx); Obstructive sleep apnea (adult) (pediatric); Type 2 diabetes mellitus without complication, unspecified whether [place] insulin use (HCC); Essential hypertension; Obesity (BMI 30.0-34.9); IVET (obstructive sleep apnea) 08/15/2020 Travel 08/15/2020 9:15 AM EST Procedure visit [facility] [address] [place] [address] Atif Burnett MD 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); Basal cell carcinoma (BCC) of back; 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; 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; Basal cell carcinoma (BCC) of left shoulder 08/03/2020 Telephone [facility] [address] [facility] [address] [facility] [address] [place] [phone] Atif Burnett MD Other 07/31/2020 Travel 07/31/2020 6:30 PM EDT - 07/31/2020 11:59 PM EDT Hospital Encounter [facility] Sleep Disorder Center [place] [address] [place] [phone] [facility] Obstructive sleep apnea (Primary Dx) Discharge Disposition: Home or Self Care 07/27/2020 Orders Only [facility] [address] [place] [address] Atif Burnett MD 07/27/2020 Orders Only [facility] [address] [place] [address] Atif Burnett MD 07/27/2020 Orders Only [facility] [address] [place] [address] Atif Burnett MD 07/27/2020 Orders Only [facility] [address] [place] [address] Atif Burnett MD 07/27/2020 Orders Only [facility] [address] [place] [address] Atif Burnett MD 07/27/2020 Orders Only [facility] [address] [place] [address] Atif Burnett MD 07/27/2020 Travel 07/27/2020 3:00 PM EDT Office Visit [facility] [address] [place] [address] Atif Burnett MD Neoplasm of unspecified behavior of bone, soft tissue, and skin (Primary Dx); Screening for skin cancer; SK (seborrheic keratosis); Lentigines; AK (actinic keratosis); History of basal cell carcinoma; History of squamous cell carcinoma; Kemp angioma; Sebaceous gland hyperplasia; Photoaging of skin 07/19/2020 Orders Only [facility] Sleep Disorder [address] [place], [place] [phone] Corinne Zaragoza MD Obstructive sleep apnea (adult) (pediatric) (Primary Dx) 07/18/2020 Orders Only [facility] Sleep Disorder [address] [place], [place] [id number] Corinne Zaragoza MD Obstructive sleep apnea (Primary Dx) 07/12/2020 12:45 PM EDT Office Visit [facility] [address] [phone] Corinne Zaragoza MD Type 2 diabetes mellitus without complication, unspecified whether terminal press operator insulin use (HCC) (Primary Dx); Essential hypertension; Obstructive sleep apnea 07/07/2019 3:45 PM EDT Office Visit [facility] [address] [address] Corinne Zaragoza MD Obstructive sleep apnea (Primary Dx); Obesity (BMI 30.0-34.9); Type 2 diabetes mellitus without complication, unspecified whether terminal press operator insulin use (HCC); Essential hypertension 12/12/2018 2:30 PM EST - 12/12/2018 11:59 PM EST Hospital Encounter [facility] [address] [phone] 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) Discharge Disposition: Home or Self Care 06/17/2018 1:15 PM EDT Office Visit [facility] [address] [address] Corinne Zaragoza MD Obstructive sleep apnea (Primary Dx); Obesity (BMI 30.0-34.9); Type 2 diabetes mellitus with complication, unspecified whether [facility] insulin use (HCC) 07/10/2017 Telephone [facility] [address] [facility] [address] [address] Chance Costa MD Follow-up 07/10/2017 11:30 AM EDT - 07/10/2017 11:59 PM EDT Hospital Encounter [facility] Physical Therapy [address] [phone] Yovani Skinner, PT Localized osteoarthritis of left knee Discharge Disposition: Home or Self Care 06/03/2017 12:30 PM EDT Office Visit [facility] [address] [place] [address] Chance Costa MD Disturbance of smell and taste (Primary Dx); Type 2 diabetes mellitus with complication, unspecified [facility] insulin use status 05/21/2017 10:00 AM EDT Office Visit [facility] [address] [place] [address] Coirnne Zaragoza MD Obstructive sleep apnea (Primary Dx); Essential hypertension; Obesity (BMI 30.0-34.9) 04/15/2017 1:15 PM EDT Office Visit [facility] [address] [facility] [address] [place] [address] Mamadou Ring MD Disturbance of smell and taste (Primary Dx); Abnormal auditory perception of both ears 02/26/2017 9:37 AM EDT - 02/26/2017 11:59 PM EDT Hospital Encounter [facility] [address] [place] [address] H/O asbestos exposure Discharge Disposition: Home or Self Care 02/19/2017 Abstract [facility] [address] [place] [address] Soraya Clarke, ORACLE IDENTITY MANAGEMENT CONSULTANT 02/19/2017 8:00 AM EDT - 02/19/2017 11:59 PM EDT Hospital Encounter [facility] [address] [place] [address] Discharge Disposition: Home or Self Care 08/03/2016 Telephone [facility] [address] [place] [phone] Colton Barker MD Cardiology Clearance 08/01/2016 Telephone [facility] [address] [place] [phone] Colton Barker MD Cardiology Clearance 07/17/2016 7:51 AM EDT - 07/17/2016 11:59 PM EDT Hospital Encounter [facility] [address] [place] [address] Colton Barker MD Pre-op testing; IVET (obstructive sleep apnea); Preoperative cardiovascular examination Discharge Disposition: Home or Self Care 07/17/2016 7:15 AM EDT - 07/17/2016 7:50 AM EDT Hospital Encounter [facility] [address] [place] [address] Colton Barker MD Pre-op testing; IVET (obstructive sleep apnea); Preoperative cardiovascular examination Discharge Disposition: Home or Self Care 07/11/2016 7:45 AM EDT Office Visit [facility] NPTFTT [address] [place] [phone] Colton Barker MD Pre-op testing (Primary Dx); IVET (obstructive sleep apnea); Preoperative cardiovascular examination 06/13/2016 Orders Only [facility] Sleep Disorder [address] [place] [address] Corinne Zaragoza MD Obstructive sleep apnea (Primary Dx) 05/11/2016 9:00 AM EDT Office Visit [facility] [address] [place] [phone] Corinne Zaragoza MD IVET (obstructive sleep apnea) (Primary Dx); Obesity (BMI 30.0-34.9) 09/07/2015 11:56 AM EST - 09/07/2015 11:59 PM EST Hospital Encounter [facility] Sleep Disorder [address] [place] [address] Corinne Zaragoza MD IVET (obstructive sleep apnea) (Primary Dx); Obesity (BMI 30.0-34.9) Discharge Disposition: Home or Self Care 05/13/2015 11:45 AM EDT - 05/13/2015 11:59 PM EDT Hospital Encounter [facility] Sleep Disorder Center [address] [place] [address] Corinne Zaragoza MD IVET (obstructive sleep apnea) (Primary Dx); Type 2 diabetes mellitus without complication (HCC); Obesity (BMI 30.0-34.9) Discharge Disposition: Home or Self Care 04/22/2015 10:30 AM EDT Office Visit [facility] [place] [phone] Dami Posada MD Foreign body (FB) in soft tissue (Primary Dx) 06/29/2014 10:59 AM EDT - 06/29/2014 11:59 PM EDT Hospital Encounter [facility] [address] [place] [address] Primary localized osteoarthrosis, pelvic region and thigh (Primary Dx); Anemia, unspecified; Primary localized osteoarthrosis, lower leg; 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); 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); Encounter for long-term (current) use of other medications; senior care (current) use of anticoagulants Discharge Disposition: Home or Self Care 04/05/2014 Telephone [facility] [address] [facility] [address] [place] [address] Colton Baldwin MD Colonoscopy (SCREENING) 03/27/2010 8:38 PM EDT - 03/27/2010 11:59 PM EDT Hospital Encounter [facility] Amanuel Staples MD 02/10/2009 10:00 PM EDT - 02/10/2009 11:59 PM EDT Hospital Encounter [facility] Amanuel Dean MD 03/24/2008 Hospital Encounter [facility] Generic, Historical Provider 03/18/2008 Hospital Encounter [facility] Generic, Historical Provider 09/10/2006 - 09/10/2006 11:25 AM EST Hospital Encounter [facility] ESDS [facility] Generic, Historical Provider 12/20/2005 7:58 AM EST - 12/20/2005 9:22 AM EST Emergency [facility]GENC[facility] Generic, Historical Provider 08/01/2004 Hospital Encounter [facility] Generic, Historical Provider 05/31/2004 Hospital Encounter [facility] Generic, Historical Provider 05/10/2004 10:23 PM EDT - 05/13/2004 2:15 PM EDT Hospital Encounter [facility] E3SW [facility] Generic, Historical Provider 05/06/2004 4:12 PM EDT - 05/06/2004 8:25 PM EDT Emergency [facility] Generic, Historical Provider 08/26/2000 Hospital Encounter [facility] Generic, Historical Provider Allergies Active Allergy Reactions Criticality Noted Date Comments Oxycodone-Acetaminoph en Nausea Only,Other (See Comments) 09/11/2016 I slept continually. -nausea occurred upon standing Oxycodone only Aspirin Nausea And Vomiting High 12/14/2022 Oxycodone Nausea And Vomiting High 12/14/2022 Medications fish oil omega 3-dha-epa 300-1,000 mg Oral Capsule, Delayed Release(E.C.) Take 2 tablets in the AM and 1 tablet in the PM Active Cinnamon Bark 500 mg Oral Capsule Take 500 mg by mouth. Active lisinopril (PRINIVIL;ZESTRI L) 20 mg Oral Tablet tablet 9 Active metFORMIN (GLUCOPHAGE) 500 mg Oral Tablet TK 2 TS PO BID 0 Active glipiZIDE (GLUCOTROL) 10 mg Oral Tablet Extended Rel 24 hr daily. 0 Active atorvastatin (LIPITOR) 20 mg Oral Tablet TAKE 1 TABLET BY MOUTH QHS 0 Active FLUZONE HIGHDOSE QUAD 20-21 PF 240 mcg/0.7 mL IM Syringe 0 Active Blood Sugar Diagnostic Misc Strip TEST BID 0 Active aspirin 81 mg Oral Tablet, Delayed Release (E.C.) Take by mouth daily. Active calcium carbonate/vitami n D3 (VITAMIN D-3 ORAL) Take by mouth. Activ e MAGNESIUM OXIDE ORAL Take by mouth. Activ e moxifloxacin (VIGAMOX) 0.5 % Opht Drops Place 1 Drop into the right eye 2 times daily. 0 2 Active difluprednate (DUREZOL) 0.05 % Opht Drops Place 1 Drop into the right eye 2 times daily. Can substitute Inveltys or Prednisolone 1 mL 2 Active nepafenac (ILEVRO) 0.3 % Opht Drops, Suspension Place 1 Drop into the right eye daily. Can substitute Bromsite or Prolensa 3 mL 2 Active Alcohol Swabs (ALCOHOL WIPES) Top Pads, MedicatedIndicat ions:Low testosterone in male,Hypogonadis m male,Low libido Apply 1 Each topically every 14 days. 100 Each 3 4 Active Syringe with Needle, Disp, 1/2 mL 27 gauge x 3/8 Misc SyringeIndicatio ns:Low testosterone in male,Hypogonadis m male,Low libido 1 Syringe by Misc.(Non-Drug; Combo Route) route every 14 days. 25 Each 3 4 Active Syringe with Needle, Disp, 3 mL 22 gauge x 1 Misc SyringeIndicatio ns:Low testosterone in male,Hypogonadis m male,Low libido 1 Syringe by Misc.(Non-Drug; Combo Route) route every 14 days. 100 Each 3 4 Active testosterone cypionate (DEPOTESTOTERONE CYPIONATE) 200 mg/mL IM OilIndications:L ow testosterone in male,Hypogonadis m male,Low libido Inject 1 mL into the muscle every 14 days. 2 mL 4 Active Active Problems Problem Noted Date Diagnosed Date Obstructive sleep apnea 07/07/2019 Overview (07/07/2019): RDI 60 cpap 16 Essential hypertension 07/07/2019 Localized osteoarthritis of left knee 07/10/2017 IVET (obstructive sleep apnea) 05/13/2015 Overview (09/07/2015): RDI 60 ,cpap 14 Obesity (BMI 30.0-34.9) 05/13/2015 Resolved Problems Problem Noted Date Diagnosed Date Resolved Date Type 2 diabetes mellitus 05/13/2015 Family History Medical History Relation Name Comments Anesth Problems Neg Hx Relation Name Status Comments Father Mother Social History Smoking Status as of 05/04/2025 Tobacco Use Types Packs/Day Years Used Date Smoking Tobacco: Never Assessed Sex and Gender Information Value Date Recorded Sex Assigned at Not on file Legal Sex Male 3:53 AM EDT Gender Identity Not on file Sexual Orientation Not on file Last Filed Vital Signs Vital Sign Reading Time Taken Comments Blood Pressure 124/68 08/05/2024 3:19 PM EDT Pulse 103 08/05/2024 3:19 PM EDT Temperature 36.7 C (98 F) 08/05/2024 3:19 PM EDT Respiratory Rate 16 08/15/2022 10:08 AM EST Oxygen Saturation 99% 08/05/2024 3:19 PM EDT Inhaled Oxygen Concentration - - Weight 98.8 kg (217 lb 13 oz) 08/05/2024 3:19 PM EDT Height 182.9 cm (6') 04/22/2024 1:48 PM EDT Body Mass Index 29.54 04/22/2024 1:48 PM EDT Plan of Treatment Not on file Medical Devices Implanted Type Area Resume Writer Device Identifier Shelf Expiration Date Model / Serial / Lot Lens Iol 1-Piece 20.5 Diopter Preloaded Acrylic Foldable Pc - [id number] Implanted:Qty: 1 on 06/13/2022 by Dash Hartley MD at [facility] Right: Eye DARLINE LAB:SURG [id number] 09/24/2024 CNA0T0.205 / [id number] / Lens Iol 1-Piece 20.0 Diopter Preloaded Acrylic Foldable Pc - [id number] Implanted:Qty: 1 on 08/15/2022 by Dash Hartley MD at [facility] Left: Eye [facility]LINE [facility]:SURG [id number] 12/12/2024 CNA0T0 .200 / [id number] / Procedures Procedure Name Priority Date/Time Associated Diagnosis Comments SEP URINALYSIS POC Routine 08/05/2024 3:14 PM EDT Low testosterone in male SEP URINALYSIS POC Routine 04/22/2024 1:45 PM EDT Hypogonadism male TESTOSTERONE FREE/TOTAL ADULT MALE - REF LAB Routine 03/12/2024 8:12 AM EDT Low testosterone in male LH/FSH Routine 02/03/2024 9:13 AM EDT Low testosterone in male PROLACTIN LEVEL Routine 02/03/2024 9:13 AM EDT Low testosterone in male TESTOSTERONE FREE/TOTAL ADULT MALE - REF LAB Routine 02/03/2024 9:13 AM EDT Low testosterone in male COMPREHENSIVE METABOLIC PANEL Routine 02/03/2024 9:13 AM EDT Low testosterone in male CBC Routine 02/03/2024 9:13 AM EDT Low testosterone in male TESTOSTERONE FREE/TOTAL ADULT MALE - REF LAB Routine 01/27/2024 9:37 AM EDT Low libido DERMATOPATHOLOGY TISSUE SEND OUT REQUEST Routine 01/30/2023 12:00 PM EDT Neoplasm of unspecified behavior of bone, soft tissue, and skin INTRAOP AIRWAY PLACEMENT Routine 9:45 AM EST CATARACT EXTRACTION WITH PHACOEMULSIFICATION AND INTRAOCULAR LENS 08/15/2022 9:40 AM EST Age-related nuclear cataract of left eye Special Needs TOPICAL/MAC DERMATOPATHOLOGY TISSUE SEND OUT REQUEST Routine 07/31/2022 11:23 AM EDT Neoplasm of unspecified behavior of bone, soft tissue, and skin INTRAOP AIRWAY PLACEMENT Routine 7:36 AM EDT CATARACT EXTRACTION WITH PHACOEMULSIFICATION AND INTRAOCULAR LENS 06/13/2022 7:30 AM EDT Age-related nuclear cataract of right eye Special Needs TOPICAL/MAC GLUCOSE METER POC Routine 06/13/2022 7:02 AM EDT DERMATOPATHOLOGY TISSUE SEND OUT REQUEST Routine 08/30/2021 12:27 PM EST Squamous cell carcinoma of left shoulder DERMATOPATHOLOGY TISSUE SEND OUT REQUEST Routine 07/31/2021 2:39 PM EDT Neoplasm of unspecified behavior of bone, soft tissue, and skin DERMATOPATHOLOGY TISSUE SEND OUT REQUEST Routine 01/02/2021 Neoplasm of unspecified behavior of bone, soft tissue, and skin UNATTENDED SLEEP STUDY Routine 0 8:16 AM EDT Obstructive sleep apnea DERMATOPATHOLOGY TISSUE SEND OUT RESULT Routine 07/27/2020 3:20 PM EDT DERMATOPATHOLOGY TISSUE SEND OUT RESULT Routine 07/27/2020 3:20 PM EDT DERMATOPATHOLOGY TISSUE SEND OUT RESULT Routine 07/27/2020 3:19 PM EDT DERMATOPATHOLOGY TISSUE SEND OUT RESULT Routine 07/27/2020 3:19 PM EDT DERMATOPATHOLOGY TISSUE SEND OUT RESULT Routine 07/27/2020 3:19 PM EDT DERMATOPATHOLOGY TISSUE SEND OUT RESULT Routine 07/27/2020 3:15 PM EDT XR CHEST PA AND LATERAL Routine 12/13/19 19 2:43 PM EST 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) XR CHEST PA AND LATERAL Routine 02/27/20 17 10:00 AM EDT H/O asbestos exposure PULMONARY FUNCTION TEST Routine 02/20/20 17 8:21 AM EDT NM MYOCARDIAL PERFUSION SPECT STRESS AND REST Routine 07/17/2016 11:11 AM EDT Pre-op testing IVET (obstructive sleep apnea) Preoperative cardiovascular examination ST STRESS TEST LEXISCAN Routine 07/17/20 16 11:00 AM EDT Pre-op testing IVET (obstructive sleep apnea) Preoperative cardiovascular examination SCANNED RADIOLOGY REPORT 016 10:32 AM EDT POCT EKG Routine 07/11/2016 8:05 AM EDT Pre-op testing PARTIAL THROMBOPLASTIN TIME Callback 06/29/2014 11:00 AM EDT Primary localized osteoarthrosis, pelvic region and thigh Anemia, unspecified Primary localized osteoarthrosis, 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) Encounter for long-term (current) use of other medications continuous churn buttermaker (current) use of anticoagulants PT / INR Callback 06/29/2014 11:00 AM EDT Primary localized osteoarthrosis, pelvic region and thigh Anemia, unspecified Primary localized osteoarthrosis, 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) Encounter for long-term (current) use of other medications senior care (current) use of anticoagulants BASIC METABOLIC PANEL Callback 06/29/2014 11:00 AM EDT Primary localized osteoarthrosis, pelvic region and thigh Anemia, unspecified Primary localized osteoarthrosis, 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) Encounter for long-term (current) use of other medications continuous churn buttermaker (current) use of anticoagulants CBC Callback 06/29/2014 11:00 AM EDT Primary localized osteoarthrosis, pelvic region and thigh Anemia, unspecified Primary localized osteoarthrosis, 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) Encounter for long-term (current) use of other medications continuous churn buttermaker (current) use of anticoagulants SCANNED LABS 07/14/2010 12:00 AM EDT THYROID STIMULATING HORMONE Routine 03/27/2010 8:56 PM EDT TESTOSTERONE LEVEL TOTAL Routine 010 8:56 PM EDT LDL, CALCULATED Routine 03/27/2010 8:56 PM EDT LIPID PANEL REFLEX Routine 03/27/2010 8:56 PM EDT COMPREHENSIVE METABOLIC PANEL Routine 03/27/2010 8:56 PM EDT DIFFERENTIAL Routine 03/27/2010 8:56 PM EDT CBC WITH DIFF Routine 03/27/2010 8:56 PM EDT SCANNED OR REPORT STL 02/13/2010 12:00 AM EDT Results * SEP URINALYSIS POC (08/05/2024 3:14 PM EDT) Only the most recent of2 resultswithin the time period is included. UA Color POC Yellow Color 08/05/2024 3:17 PM EDT [facility] UA Appear POC Clear Clear 08/05/2024 3:17 PM EDT [facility] UA Gluc POC Negative Negative mg/dL 08/05/2024 3:17 PM EDT [facility] UA Bili POC Negative Negative 08/05/2024 3:17 PM EDT [facility] UA Ketones POC Negative Negative mg/dL 08/05/2024 3:17 PM EDT [facility] UA SG POC 1.020 1.001 - 1.035 no units 08/05/2024 3:17 PM EDT [facility] UA Blood POC Negative Negative 08/05/2024 3:17 PM EDT [facility] UA pH POC 5.0 5.0 - 8.0 pH 08/05/2024 3:17 PM EDT [facility] UA Protein POC Negative Negative mg/dL 08/05/2024 3:17 PM EDT [facility] UA Urobilinogen POC 0.2 0.2, 1.0 08/05/2024 3:17 PM EDT [facility] UA Nitrite POC Negative Negative 08/05/2024 3:17 PM EDT [facility] UA Leuk Est POC Negative Negative 3:17 PM EDT [facility] Urine URINE SPECIMEN COLLECTION / Unknown 08/05/2024 3:14 PM EDT 08/05/2024 3:17 PM EDT Corinne Calvin PA-C POINT OF CARE TEST ORDERAB LES Final Result [facility] [address] [place], [place] [id number] * (ABNORMAL) TESTOSTERONE FREE/TOTAL ADULT MALE - REF LAB (03/12/2024 8:12 AM EDT) Only the most recent of3 resultswithin the time period is included. Testosterone, Adult Male 207(L) 300 - 720 ng/dL 03/13/2024 7:52 PM EDT [facility] Comment: INTERPRETIVE INFORMATION: Testosterone by Immunoassay Testosterone immunoassays are both imprecise and inaccurate at low testosterone concentrations, such as those found in children and cisgender females. For these individuals, testing by mass spectrometry is recommended; refer to Testosterone (Adult Females, Children, or Individuals on Testosterone-Suppressing Hormone Therapy) ([employer] test code [id number]). Free or bioavailable testosterone measurements may provide supportive information. For individuals on testosterone hormone therapy, refer to cisgender male reference intervals. No reference intervals have been established for males younger than 14 years or for cisgender females. For a complete set of all established reference intervals, refer to [employer]/Tests/Pub/4103816. Testosterone, Percentage Free 1.9 1.6 - 2.9 % 03/13/2024 7:52 PM EDT [facility] Comment: Performed By: [facility] [address] [place] [id number] Technical System Analyst: Niles Degroot MD, PhD CLIA Number: [id number] SHBG 28 19 - 76 nmol/L 03/13/2024 7:52 PM EDT [facility] Comment: REFERENCE INTERVAL: Sex Hormone Binding Globulin Access complete set of age- and/or gender-specific reference intervals for this test in the [employer] Test Directory ([employer]). Free T Calc 39(L) 47 - 244 pg/mL 03/13/2024 7:52 PM EDT [facility] Comment: INTERPRETIVE INFORMATION: Testosterone, Free Calculation Free testosterone concentration is calculated using total testosterone (measured by immunoassay) and the binding constant of testosterone and sex hormone-binding globulin (SHBG). Testosterone immunoassays are both imprecise and inaccurate at low testosterone concentrations, such as those found in children and cisgender females. For these individuals, testing by mass spectrometry is recommended; refer to Testosterone, Free (Adult Females, Children, or Individuals on Testosterone-Suppressing Hormone Therapy) ([employer] test code [id number]). For individuals on testosterone hormone therapy, refer to cisgender male reference intervals. No reference intervals have been established for males younger than 14 years or for cisgender females. For a complete set of all established reference intervals, refer to [employer]/Tests/Pub/[id number]. Blood VENOUS BLOOD / Unknown Venipuncture / Unknown 03/12/2024 8:12 AM EDT 03/12/2024 8:12 AM EDT us Everett A Warning PA CHEMISTRY ORDERABLES Final R esult [facility] [address] [place] [address] * LH/FSH (02/03/2024 9:13 AM EDT) LH 6.27 mIU/mL 02/03/2024 4:29 PM EDT [employer] Comment: Suggested Reference Ranges (mIU/mL) Females Follicular Phase 2.4 - 12.6 Ovulation Phase 14.0 - 95.6 Luteal Phase 1.0 - 11.4 Postmenopause 7.7 - 58.5 Males 1.7 - 8.6 FSH 4.78 mIU/mL 02/03/2024 4:29 PM EDT [employer] Comment: Suggested Reference Range (mIU/mL) Females Follicular Phase 3.5 - 12.5 Ovulation Phase 4.7 - 21.5 Luteal Phase 1.7 - 7.7 Postmenopause 25.8 - 134.8 Males 1.5 - 12.4 Blood VENOUS BLOOD / Unknown Venipuncture / Unknown 02/03/2024 9:13 AM EDT 02/03/2024 9:13 AM EDT Narrative [facility] - 02/03/2024 4:29 PM EDT Ingestion of erin doses of biotin (>5 mg/day) taken within 8 hours of drawing blood sample can interfere with this immunoassay test. us Everett A Warning PA IMMUNOLOGY ORDERABLES Final Result [facility] [address] [facility] [facility] , [address] [place] [id number] * (ABNORMAL) CBC (02/03/2024 9:13 AM EDT) Only the most recent of2 resultswithin the time period is included. WBC 6.5 3.7 - 10.3 x10(3)/mcL 02/03/2024 4:23 PM EDT [facility] RBC 4.12(L) 4.60 - 6.10 x10(6)/mcL 02/03/2024 4:23 PM EDT [facility] Hgb 13.8 13.7 - 17.5 g/dL 02/03/2024 4:23 PM EDT [facility] Hct 43.4 40.0 - 51.0 % 02/03/2024 4:23 PM EDT [facility] MCV 105.3(H) 80.0 - 100.0 fL 02/03/2024 4:23 PM EDT [facility] MCH 33.5 26.0 - 34.0 pg 02/03/2024 4:23 PM EDT [facility] MCHC 31.8 30.7 - 35.5 g/dL 02/03/2024 4:23 PM EDT [facility] RDW 12.6 <=14.9 % 02/03/2024 4:23 PM EDT [facility] Platelet 216 155 - 369 x10(3)/mcL 02/03/2024 4:23 PM EDT [facility] MPV 10.0 8.8 - 12.5 fL 02/03/2024 4:23 PM EDT [facility] Blood VENOUS BLOOD / Unknown Venipuncture / Unknown 02/03/2024 9:13 AM EDT 02/03/2024 9:13 AM EDT us Everett A Warning PA HEMATOLOGY ORDERABLES Final Result Performing Organization Address [facility] de Phone Number [facility], [address] , [address] [place] [phone] * PROLACTIN LEVEL (02/03/2024 9:13 AM EDT) Pathologist [facility] Prolactin 14.70 4.04 - 15.20 ng/mL 02/03/2024 4:29 PM EDT [facility] Blood VENOUS BLOOD / Unknown Venipuncture / Unknown 02/03/2024 9:13 AM EDT 02/03/2024 9:13 AM EDT Narrative [facility] - 02/03/2024 4:29 PM EDT Ingestion of erin doses of biotin (>5 mg/day) taken within 8 hours of drawing blood sample can interfere with this immunoassay test. Everett A Warning PA CHEMISTRY ORDERABLES Final R esult Performing Organization Address [facility] de Phone Number [facility], [address] , [place] [address] * (ABNORMAL) COMPREHENSIVE METABOLIC PANEL (02/03/2024 9:13 AM EDT) Only the most recent of2 resultswithin the time period is included. Sodium 134(L) 136 - 145 mmol/L 02/03/2024 4:19 PM EDT [facility] Potassium 5.9(H) 3.5 - 5.0 mmol/L 02/03/2024 4:19 PM EDT [facility] Chloride 99 98 - 107 mmol/L 02/03/2024 4:19 PM EDT [facility], [facility] Total CO2 28 22 - 29 mmol/L 02/03/2024 4:19 PM EDT [facility] Anion Gap 7 7 - 16 mmol/L 02/03/2024 4:19 PM EDT [facility] Calcium 9.5 8.8 - 10.4 mg/dL 02/03/2024 4:19 PM EDT [facility] Glucose Lvl 217(H) 70 - 99 mg/dL 02/03/2024 4:19 PM EDT [facility] BUN 24(H) 8 - 23 mg/dL 02/03/2024 4:19 PM EDT [facility] Creatinine 1.25 0.67 - 1.30 mg/dL 02/03/2024 4:19 PM EDT [facility] Albumin 4.2 3.2 - 4.6 gm/dL 02/03/2024 4:19 PM EDT [facility] Total Protein 7.1 6.4 - 8.3 gm/dL 02/03/2024 4:19 PM EDT [facility] Bili Total 0.7 0.2 - 1.4 mg/dL 02/03/2024 4:19 PM EDT [facility] ALT 26 <=41 U/L 02/03/2024 4:19 PM EDT [facility] AST 26 <=40 U/L 02/03/2024 4:19 PM EDT [facility] Alk Phos 70 40 - 129 U/L 02/03/2024 4:19 PM EDT [facility] eGFR (CKD-EPIcr 2020) 59(L) >=60 mL/min/1.7 3 m2 02/03/2024 4:19 PM EDT [facility] Comment:Estimated GFR was ca lculated using the CKD-EPIcr (2020) equation refit without race. The equation is recommended by the National Kidney Foundation - [place] [employer] of Nephrology Task Force. Blood VENOUS BLOOD / Unknown Venipuncture / Unknown 02/03/2024 9:13 AM EDT 02/03/2024 9:13 AM EDT us Everett A Warning PA CHEMISTRY ORDERABLES Final R esult [facility] [address] [facility], [place] [address] [facility] [address] [place] [address] * DERMATOPATHOLOGY TISSUE SEND OUT REQUEST (01/30/2023 12:00 PM EDT) Only the most recent of5 resultswithin the time period is included. Tissue us Atif Burnett MD PATHOLOGY ORDERABLES Final Re sult Performing Organization Address [facility] Co de Phone Number [facility] [address] [place] [address] * INTRAOP AIRWAY PLACEMENT (08/15/2022 9:45 AM EST) Narrative [facility] - 08/15/2022 9:45 AM EST Lucía Wild, DYE HOUSE WORKER 08/15/2022 9:45 AM Intraop Airway Placement: Date/Time: 08/15/2022 9:45 AM Airway type: Nasal cannula salter us Jonah Riggs MD [place] ANESTHESIA Final Res ult Performing Organization Address [facility] Co de Phone Number [facility] [address] [place] [address] * INTRAOP AIRWAY PLACEMENT (06/13/2022 7:36 AM EDT) Narrative [facility] - 06/13/2022 7:36 AM EDT Lucía Wild, DYE HOUSE WORKER 06/13/2022 7:36 AM Intraop Airway Placement: Date/Time: 06/13/2022 7:36 AM Airway type: Nasal cannula salter us Yusuf Barron MD [place] ANESTHESIA Final Resul t Performing Organization Address [facility] Co de Phone Number [facility] [address] [place] [address] * (ABNORMAL) GLUCOSE METER POC (06/13/2022 7:02 AM EDT) Glucose Meter POC 172(H) 70 - 100 mg/dL 06/13/2022 7:04 AM EDT [facility] Sample Type Capillary 06/13/2022 7:04 AM EDT [facility] Patient Status Non-Critical Patient 06/13/2022 7:04 AM EDT [facility] Blood BLOOD SPECIMEN / Unknown 06/13/2022 7:02 AM EDT 06/13/2022 7:04 AM EDT Dash Hartley MD POINT OF CARE TEST ORDERABLE S Final Result Performing Organization Address City/[facility]/ZIP Co de Phone Number [facility] [address] [place] [address] * UNATTENDED SLEEP STUDY (07/31/2020 8:16 AM EDT) [facility] HOLLY SLEEP OVERALL RESULT [facility] DATE OF STUDY [facility] Study Type Adult [facility] PATIENT WEIGHT 229.0 [facility] APNEA INDEX 13.7 [facility] Apnea Hypopnea Index 35.5 [facility] RDI Index 35.5 [facility] Central Apnea Index 0.0 [facility] REM AHI [facility] Min O2 Saturation 81 [facility] RDI REM [facility] RDI nonREM 35.5 [facility] CPAP Device [facility] CP[facility] Pressure [facility] IPAP Pressure [facility] EPAP Pressure [facility] Auto Pressure Support [facility] Supplemental O2 [facility] Mask Type [facility] Mask Size [facility] APAP Range [facility] Auto-IPAP Max [facility] Auto-IPAP Min [facility] Pressure Support [facility] PAP Compliance % [facility] Compliance Days [facility] Residual AHI [facility] PAP 90-95th Percentile [facility] 07/31/2020 8:16 AM EDT us Corinne Zaragoza MD SLEEP CENTER ORDERABLES Denita l Result Performing Organization Address City/[facility]/ZIP Co de Phone Number [facility] [address] [place] [address] * DERMATOPATHOLOGY TISSUE SEND OUT RESULT (07/27/2020 3:20 PM EDT) Only the most recent of6 resultswithin the time period is included. [facility] DERM PATHOLOGY REPORT MICRO EXAM: There are islands of atypical basaloid cells with peripheral palisading thatare connected to the epidermis. There is slight fibrosis and a lymphocyticinf iltrate. 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 Lt arm deltoidBiopsy Date: 07/27/2020Impression: SCCis VS SBCC vs inflam macular SKGross Description: A specimen of skin was received [id number] us Atif Burnett MD PATHOLOGY ORDERABLES Final Re sult DERMATOLOGY * XR CHEST PA AND LATERAL (12/12/2018 2:43 PM EST) Only the most recent of2 resultswithin the time period is included. Anatomical Region Laterality Modality Chest Radiographic Deidre ging 12/12/2018 2:43 PM EST Impressions 12/12/2018 3:17 PM EST No acute finding. - - Narrative 12/12/2018 3:17 PM EST PA AND LATERAL CHEST X-RAY, 12/12/2018 2:43 PM CLINICAL HISTORY: [id number] COMPARISON: 02/26/2017 exam. PROCEDURE COMMENTS: Frontal and lateral views of the chest. FINDINGS: Cardiovascular structures within normal limits. No pneumonia or effusion. No pneumothorax. Procedure Note Cyrus Rosario MD - 12/12/2018 PA AND LATERAL CHEST X-RAY, 12/12/2018 2:43 PM CLINICAL HISTORY: [id number] COMPARISON: 02/26/2017 exam. PROCEDURE COMMENTS: Frontal and lateral views of the chest. FINDINGS: Cardiovascular structures within normal limits. No pneumonia or effusion.No pneumothorax. IMPRESSION: No acute finding. - - us Sajan Alex MD IMG DIAGNOSTIC IMAGING ORDERABLE S Final Result * PULMONARY FUNCTION TEST (02/19/2017 8:21 AM EDT) 02/19/2017 8:21 AM EDT Impressions [facility] - 02/19/2017 8:21 AM EDT Good patient effort and understanding. Acceptable results and reproducibility. SpHb=13.5 g/dL NORMAL AIRFLOW rules out significant obstructive disease. MILD RESTRICTIVE VENTILATORY DEFECT. DIFFUSING CAPACITY IS NORMAL, corrected for hemoglobin. THIS PATTERN SUGGESTS CHEST WALL or NEUROMUSCULAR DISORDERS. Clinical Correlation is Required. This data was interpreted based upon the 2005 ATS/ERS Task Force Position Statement: Interpretative Strategies for Lung Function Tests. This section is an excerpt of the full report. us Amanuel Staples MD PFT ORDERABLES Final Resul t [facility] [address] [place] [address] * NM MYOCARDIAL PERFUSION SPECT STRESS AND REST (07/17/2016 11:11 AM EDT) Anatomical Region Laterality Modality Nuclear Medicine 07/17/2016 8:17 AM EDT Impressions 07/17/2016 12:25 PM EDT IMPRESSIONS Normal left ventricular perfusion study. There is no pharmacologically provoked ischemia. Preserved left ventricular systolic function. Narrative Procedure Note Sergio Valverde MD - 07/17/2016 IMPRESSION IMPRESSIONS Normal left ventricular perfusion study. There is no pharmacologicallyprovoked ischemia. Preserved left ventricular systolic function. us Colton Barker MD IMG NM CARDIAC ORDERABL ES Final Result * ST STRESS TEST LEXISCAN (07/17/2016 11:00 AM EDT) Anatomical Region Laterality Modality Cardiac Stress T esting 07/17/2016 9:23 AM EDT Impressions 07/17/2016 10:10 AM EDT Exercise ECG Report [facility] Interpretive Statements Stress Test Lexiscan Reason for Exam: Preop clearance Ordering Diagnosis: Preop clearance Resting HR: 64 Peak HR: 112 Resting B/P 168/72 PeaK B/P 172/74 1. Lexiscan 0.4 mg was given IV push at 30 seconds into protocol at 9:30 AM. 2. Lexiscan injection was done with low level exercise. 3. Termination of test due to protocol completion. 4. Symptoms: SOB. 5. Aminophylline was not given. 6. Myoview scan report pending. Blood Pressure Response to Exercise is :Normal Comment on Resting EKG: SR WNL Arrhythmias: None Conclusion: Normal EKG Response Electronically Signed On 07-17-2016 10:10:03 EDT by Jairon Nicolas MD Narrative Procedure Note Jairon Nicolas MD - 07/17/2016 IMPRESSION [facility] Interpretive Statements Stress Test Lexiscan Reason for Exam: Preop clearance Ordering Diagnosis: Preop clearance Resting HR: 64 Peak HR: 112 Resting B/P 168/72 PeaK B/P 172/74 1. Lexiscan 0.4 mg was given IV push at 30 seconds into protocol at 9:30AM. 2. Lexiscan injection was done with low level exercise. 3. Termination of test due to protocol completion. 4. Symptoms: SOB. 5. Aminophylline was not given. 6. Myoview scan report pending. Blood Pressure Response to Exercise is :Normal Comment on Resting EKG: SR WNL Arrhythmias: None Conclusion: Normal EKG Response Electronically Signed On 07-17-2016 10:10:03 EDT by Jairon Nicolas MD us Colton Barker MD IMG STRESS ORDERABLES F inal Result * SCANNED RADIOLOGY REPORT (07/17/2016 10:32 AM EDT) Anatomical Region Laterality Modality Cardiac Stress T esting 07/17/2016 10:3 2 AM EDT us Unknown Unknown IMG DIAGNOSTIC IMAGING ORDERABLE S Final Result * POCT EKG (07/11/2016 8:05 AM EDT) 07/11/2016 8:05 AM EDT Impressions SEP OFFICE - 07/11/2016 8:32 AM EDT Sinus Bradycardia No ischemic ST changes Colton Barker MD POINT OF CARE CARDIOLOG Y Final Result Performing Organization Address City/[facility] Co de Phone Number SEP OFFICE * PARTIAL THROMBOPLASTIN TIME (06/29/2014 11:00 AM EDT) PTT 29.2 25.6 - 35.5 second(s) [facility] Comment: Therapeutic range for direct thrombin inhibitors: Argatroban is 1.5 to 3 times the aPTT baseline. Lepirudin is 1.5 to 2 times the aPTT baseline. The aPTT should not exceed 100 seconds. The dosage of Argatroban should be decreased in patients with hepatic impairment. The dosage of Lepirudin should be decreased in renal insufficiency. The aPTT is no longer the appropriate test to monitor unfractionated heparin anticoagulation. Blood specimen (specimen) UPPER LIMB STRUCTURE / Unknown 06/29/2014 11:00 AM EDT 06/29/2014 3:51 PM EDT Narrative [facility] - 06/29/2014 4:[address] fax results [phone] Result [facility] HEMATOLOGY ORDERABLES Final Resu lt Performing Organization Address [facility] de Phone Number [facility] [address] [place] [address] * PT / INR (06/29/2014 11:00 AM EDT) PT 10.8 9.6 - 12.6 second(s) [facility] INR 0.97 0.87 - 1.13 [facility] Comment: Level of Therapy Indications Target INR Range Standard Dose Treatment and prophylaxis of venous 2.0 - 3.0 thrombosis, pulmonary embolism High Dose High risk patients with mechanical 2.5 - 3.5 heart valves Blood specimen (specimen) UPPER LIMB STRUCTURE / Unknown 06/29/2014 11:00 AM EDT 06/29/2014 3:51 PM EDT Narrative [facility] - 06/29/2014 4:[address] fax results [phone] Grady Longoria HEMATOLOGY ORDERABLES Final Resu lt Performing Organization Address [facility] Co de Phone Number [facility] [address] [place] [address] * (ABNORMAL) BASIC METABOLIC PANEL (06/29/2014 11:00 AM EDT) Sodium 139 136 - 145 mmol/L [facility] Potassium 4.5 3.5 - 5.0 mmol/L [facility] Chloride 102 98 - 107 mmol/L [facility] Total CO2 27 22 - 29 mmol/L [facility] Anion Gap 10 7 - 16 mmol/L [facility] Calcium 10.1 8.8 - 10.2 mg/dL [facility] Glucose Lvl 181(H) 82 - 100 mg/dL [facility] BUN 20 8 - 23 mg/dL [facility] Creatinine 1.08 0.67 - 1.30 mg/dL [facility] GFR Afr Am >60 [facility] Comment: GFR is estimated using creatinine, age, gender, and race. GFR has been validated for patients between 18 and 70 years of age. GFR has not been validated for women, patients with serious comorbid conditions, or persons with extremes of body size, muscle mass, or nutritional status. For additional information: www.kidney.org. Chronic kidney disease stage GFR (ml/min/1.73 square meters) Stage 3 30 - 59 Stage 4 15 - 29 Stage 5 14 or less GFR Non Afr Am >60 [facility] Blood specimen (specimen) UPPER LIMB STRUCTURE / Unknown 06/29/2014 11:00 AM EDT 06/29/2014 3:51 PM EDT Narrative [facility] - 06/29/2014 5:[address] fax results [phone] Grady Von CHEMISTRY ORDERABLES Edited Resu lt - Final Performing Organization Address [facility]/ZIP Co de Phone Number [facility] [address] [place] [id number] * SCANNED LABS (07/14/2010 12:00 AM EDT) Narrative 07/14/2010 11:04 AM EDT Procedure Note Unknown, U - 07/14/2010 1:09 PM EDT us U Unknown HEMATOLOGY ORDERABLES Final Resu lt * LDL, CALCULATED (03/27/2010 8:56 PM EDT) [facility] LDL Calculated 146 mg/dL [facility] Comment: < 100 Optimal 100 - 129 Near or above optimal 130 - 159 Borderline High 160 - 189 High >= 190 Very High Blood specimen (specimen) 03/27/2010 8:56 PM EDT 03/27/2010 8:56 PM EDT Amanuel Staples MD CHEMISTRY ORDERABLES Final Result Performing Organization Address [facility] de Phone Number [facility] [address] [place] [address] * (ABNORMAL) LIPID PANEL REFLEX (03/27/2010 8:56 PM EDT) [facility] Cholesterol 224(H) <=200 mg/dL [facility] Comment: < 200 Desirable 200 - 239 Borderline High >= 240 High Triglyceride 180(H) <=150 mg/dL [facility] Comment: < 150 Normal 150 - 199 Borderline High 200 - 499 High >= 500 Very High HDL 42 >=40 mg/dL [facility] Comment: > 60 Optimal 40 - 60 Acceptable < 40 Low Blood specimen (specimen) 03/27/2010 8:56 PM EDT 03/27/2010 8:56 PM EDT Amanuel Staples MD CHEMISTRY ORDERABLES Final Result Performing Organization Address [facility] Co de Phone Number [facility] [address] [place] [address] * AUTO DIFF (03/27/2010 8:56 PM EDT) [facility] Neut Percent 59.0 40.0 - 70.0 % [facility] Lymph Percent 29.2 17.0 - 46.0 % [facility] Teller Percent 8.9 4.0 - 12.0 % [facility] Eos Percent 2.4 0.0 - 6.0 % [facility] Baso Percent 0.5 0.0 - 2.0 % [facility] Neut# 3.5 1.8 - 7.7 x10(3)/mcL [facility] Lymph# 1.7 1.0 - 4.8 x10(3)/[facility] Teller# 0.5 0.0 - 1.3 x10(3)/[facility] Eos# 0.1 0.1 - 0.5 x10(3)/[facility] Baso# 0.0 0.0 - 0.2 x10(3)/[facility] Blood specimen (specimen) 03/27/2010 8:56 PM EDT 03/27/2010 8:56 PM EDT us Amanuel Staples MD HEMATOLOGY ORDERABLES Final Result [facility] [address] [place] [address] * (ABNORMAL) CBC WITH AUTO DIFF (03/27/2010 8:56 PM EDT) WBC 5.9 4.0 - 11.0 x10(3)/mcL [facility] RBC 4.50 4.50 - 5.90 x10(6)/mcL [facility] Hgb 15.7 13.5 - 17.1 gm/dL [facility] Hct 46.1 40.0 - 50.2 % [facility] MCV 102.5(H) 80.0 - 95.8 fL [facility] MCH 35.0(H) 27.0 - 33.2 pg [facility] MCHC 34.1 33.0 - 36.0 gm/dL [facility] RDW 13.2 11.5 - 14.5 % [facility] Platelet 168 150 - 400 x10(3)/mcL [facility] MPV 7.5 7.0 - 12.0 fL [facility] Blood specimen (specimen) 03/27/2010 8:56 PM EDT 03/27/2010 8:56 PM EDT us Amanuel Staples MD HEMATOLOGY ORDERABLES Final Result Performing Organization Address [facility] de Phone Number [facility] [address] [place] [address] * THYROID STIMULATING HORMONE (03/27/2010 8:56 PM EDT) TSH 1.640 0.300 - 5.000 mcIU/mL [facility] Blood specimen (specimen) 03/27/2010 8:56 PM EDT 03/27/2010 8:56 PM EDT Amanuel Staples MD CHEMISTRY ORDERABLES Final Result Performing Organization Address [facility] Phone Number [facility] [address] [place] [address] * (ABNORMAL) TESTOSTERONE LEVEL TOTAL (03/27/2010 8:56 PM EDT) Pathologist [facility] Testosterone Lvl 170(L) 300 - 720 ng/dL [facility] Comment: Note: Reference range based on 8:00 AM standard. New reference range effective 10. Please direct any questions to . Blood specimen (specimen) 03/27/2010 8:56 PM EDT 03/27/2010 8:56 PM EDT Amanuel Staples MD CHEMISTRY ORDERABLES Final Result Performing Organization Address [facility] de Phone Number [facility] [address] [place] [address] * SCANNED OR REPORT STL (02/13/2010 12:00 AM EDT) Narrative 02/13/2010 6:47 PM EDT Ordered by an unspecified provider. 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 06/29/2014 Encounter for long-term (current) use of other medications 06/29/2014 continuous churn buttermaker (current) use of anticoagulants Long-term (current) use of anticoagulants 06/29/2014 Foreign body (FB) in soft tissue Residual foreign body in soft tissue 04/22/2015 IVET (obstructive sleep apnea) Obstructive sleep apnea (adult) (pediatric) 05/13/2015 Type 2 diabetes mellitus without complication (HCC) 05/13/2015 Obesity (BMI 30.0-34.9) Obesity, unspecified 05/13/2015 IVET (obstructive sleep apnea) Obstructive sleep apnea (adult) (pediatric) 09/07/2015 Obesity (BMI 30.0-34.9) Obesity, unspecified 09/07/2015 IVET (obstructive sleep apnea) Obstructive sleep apnea (adult) (pediatric) 05/11/2016 Obesity (BMI 30.0-34.9) Obesity, unspecified 05/11/2016 Obstructive sleep apnea Obstructive sleep apnea (adult) (pediatric) 06/13/2016 Pre-op testing Preoperative examination, unspecified 07/11/2016 IVET (obstructive sleep apnea) Obstructive sleep apnea (adult) (pediatric) 07/11/2016 Preoperative cardiovascular examination Pre-operative cardiovascular examination 07/11/2016 Pre-op testing Preoperative examination, unspecified 07/17/2016 IVET (obstructive sleep apnea) Obstructive sleep apnea (adult) (pediatric) 07/17/2016 Preoperative cardiovascular examination Pre-operative cardiovascular examination 07/17/2016 Pre-op testing Preoperative examination, unspecified 07/17/2016 IVET (obstructive sleep apnea) Obstructive sleep apnea (adult) (pediatric) 07/17/2016 Preoperative cardiovascular examination Pre-operative cardiovascular examination 07/17/2016 H/O asbestos exposure Personal history of contact with and (suspected) exposure to asbestos 02/26/2017 Disturbance of smell and taste Disturbances of sensation of smell and taste 04/15/2017 Abnormal auditory perception of both ears 04/15/2017 Obstructive sleep apnea Obstructive sleep apnea (adult) (pediatric) 05/21/2017 Essential hypertension Unspecified essential hypertension 05/21/2017 Obesity (BMI 30.0-34.9) Obesity, unspecified 05/21/2017 Disturbance of smell and taste Disturbances of sensation of smell and taste 06/03/2017 Type 2 diabetes mellitus with complication, unspecified [facility] insulin use status 06/03/2017 Localized osteoarthritis of left knee 07/10/2017 Obstructive sleep apnea Obstructive sleep apnea (adult) (pediatric) 06/17/2018 Obesity (BMI 30.0-34.9) Obesity, unspecified 06/17/2018 Type 2 diabetes mellitus with complication, unspecified whether terminal press operator insulin use 06/17/2018 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) 12/12/2018 Obstructive sleep apnea Obstructive sleep apnea (adult) (pediatric) 07/07/2019 Obesity (BMI 30.0-34.9) Obesity, unspecified 07/07/2019 Type 2 diabetes mellitus without complication, unspecified whether [facility] insulin use (HCC) 07/07/2019 Essential hypertension Unspecified essential hypertension 07/07/2019 Type 2 diabetes mellitus without complication, unspecified whether [facility] insulin use (HCC) 07/12/2020 Essential hypertension Unspecified essential hypertension 07/12/2020 Obstructive sleep apnea Obstructive sleep apnea (adult) (pediatric) 07/12/2020 Obstructive sleep apnea Obstructive sleep apnea (adult) (pediatric) 07/18/2020 Obstructive sleep apnea (adult) (pediatric) 07/19/2020 Screening for skin cancer Screening for malignant neoplasm of the skin 07/27/2020 SK (seborrheic keratosis) Other seborrheic keratosis 07/27/2020 Lentigines Other dyschromia 07/27/2020 AK (actinic keratosis) Actinic keratosis 07/27/2020 Neoplasm of unspecified behavior of bone, soft tissue, and skin 07/27/2020 History of basal cell carcinoma Personal history of other malignant neoplasm of skin 07/27/2020 History of squamous cell carcinoma Personal history of malignant neoplasm of other site 07/27/2020 Kemp angioma Nevus, non-neoplastic 07/27/2020 Sebaceous gland hyperplasia Other specified disease of sebaceous glands 07/27/2020 Photoaging of skin Other chronic dermatitis due to solar radiation 07/27/2020 Obstructive sleep apnea Obstructive sleep apnea (adult) (pediatric) 07/31/2020 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 08/15/2020 Basal cell carcinoma (BCC) of back 08/15/2020 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 08/15/2020 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 08/15/2020 Basal cell carcinoma (BCC) of left shoulder 08/15/2020 Obstructive sleep apnea Obstructive sleep apnea (adult) (pediatric) 10/12/2020 Obstructive sleep apnea (adult) (pediatric) 10/12/2020 Type 2 diabetes mellitus without complication, unspecified whether [facility] insulin use (HCC) 10/12/2020 Essential hypertension Unspecified essential hypertension 10/12/2020 Obesity (BMI 30.0-34.9) Obesity, unspecified 10/12/2020 IVET (obstructive sleep apnea) Obstructive sleep apnea (adult) (pediatric) 10/12/2020 Neoplasm of unspecified behavior of bone, soft tissue, and skin 12/29/2020 Keratoacanthoma Neoplasm of uncertain behavior of skin 01/19/2021 AK (actinic keratosis) Actinic keratosis 01/19/2021 Lentigines Other dyschromia 01/19/2021 Kemp angioma Nevus, non-neoplastic 01/19/2021 Sebaceous gland hyperplasia Other specified disease of sebaceous glands 01/19/2021 Photoaging of skin Other chronic dermatitis due to solar radiation 01/19/2021 Screening for skin cancer Screening for malignant neoplasm of the skin 01/19/2021 Neoplasm of unspecified behavior of bone, soft tissue, and skin 07/27/2021 Actinic keratosis 07/27/2021 Kemp angioma Nevus, non-neoplastic 07/27/2021 Lentigines Other dyschromia 07/27/2021 Screening for skin cancer Screening for malignant neoplasm of the skin 07/27/2021 Photoaging of skin Other chronic dermatitis due to solar radiation 07/27/2021 History of basal cell carcinoma Personal history of other malignant neoplasm of skin 07/27/2021 History of squamous cell carcinoma Personal history of malignant neoplasm of other site 07/27/2021 Sebaceous gland hyperplasia Other specified disease of sebaceous glands 07/27/2021 AK (actinic keratosis) Actinic keratosis 08/03/2021 Squamous cell carcinoma of left shoulder 08/28/2021 Visit for suture removal Encounter for removal of sutures 09/04/2021 Obstructive sleep apnea Obstructive sleep apnea (adult) (pediatric) 10/17/2021 Inflamed seborrheic keratosis 01/25/2022 Other disturbances of skin sensation 01/25/2022 Actinic keratosis 01/25/2022 History of basal cell carcinoma Personal history of other malignant neoplasm of skin 01/25/2022 History of squamous cell carcinoma Personal history of malignant neoplasm of other site 01/25/2022 Screening for skin cancer Screening for malignant neoplasm of the skin 01/25/2022 Photoaging of skin Other chronic dermatitis due to solar radiation 01/25/2022 Lentigines Other dyschromia 01/25/2022 Seborrheic keratoses 01/25/2022 Sebaceous gland hyperplasia Other specified disease of sebaceous glands 01/25/2022 Kemp angioma Nevus, non-neoplastic 01/25/2022 Neoplasm of unspecified behavior of bone, soft tissue, and skin 01/25/2022 Age-related nuclear cataract of right eye Senile nuclear sclerosis 06/13/2022 Neoplasm of unspecified behavior of bone, soft tissue, and skin 07/27/2022 Actinic keratosis 07/27/2022 Lentigines Other dyschromia 07/27/2022 Seborrheic keratoses 07/27/2022 Sebaceous gland hyperplasia Other specified disease of sebaceous glands 07/27/2022 Kemp angioma Nevus, non-neoplastic 07/27/2022 History of basal cell carcinoma Personal history of other malignant neoplasm of skin 07/27/2022 History of squamous cell carcinoma Personal history of malignant neoplasm of other site 07/27/2022 Photoaging of skin Other chronic dermatitis due to solar radiation 07/27/2022 Obstructive sleep apnea Obstructive sleep apnea (adult) (pediatric) 08/10/2022 Tiredness Other malaise and fatigue 08/10/2022 Type 2 diabetes mellitus without complication, unspecified whether terminal press operator insulin use (HCC) 08/10/2022 Essential hypertension Unspecified essential hypertension 08/10/2022 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 08/14/2022 Age-related nuclear cataract of left eye Senile nuclear sclerosis 08/15/2022 Neoplasm of unspecified behavior of bone, soft tissue, and skin 01/25/2023 AK (actinic keratosis) Actinic keratosis 01/25/2023 History of squamous cell carcinoma Personal history of malignant neoplasm of other site 01/25/2023 Photoaging of skin Other chronic dermatitis due to solar radiation 01/25/2023 Lentigines Other dyschromia 01/25/2023 Seborrheic keratoses 01/25/2023 Kemp angioma Nevus, non-neoplastic 01/25/2023 History of basal cell carcinoma Personal history of other malignant neoplasm of skin 01/25/2023 Sebaceous gland hyperplasia Other specified disease of sebaceous glands 01/25/2023 Obstructive sleep apnea Obstructive sleep apnea (adult) (pediatric) 08/23/2023 Obstructive sleep apnea Obstructive sleep apnea (adult) (pediatric) 08/23/2023 Tiredness Other malaise and fatigue 08/23/2023 Hyperlipidemia, unspecified hyperlipidemia type 08/23/2023 Photoaging of skin Other chronic dermatitis due to solar radiation 10/03/2023 Screening for skin cancer Screening for malignant neoplasm of the skin 10/03/2023 History of basal cell carcinoma Personal history of other malignant neoplasm of skin 10/03/2023 History of squamous cell carcinoma Personal history of malignant neoplasm of other site 10/03/2023 AK (actinic keratosis) Actinic keratosis 10/03/2023 Lentigines Other dyschromia 10/03/2023 Seborrheic keratoses 10/03/2023 Sebaceous gland hyperplasia Other specified disease of sebaceous glands 10/03/2023 Kemp angioma Nevus, non-neoplastic 10/03/2023 Inflamed skin tag Unspecified hypertrophic and atrophic condition of skin 10/03/2023 Other disturbances of skin sensation 10/03/2023 Low libido 01/22/2024 Low libido 01/27/2024 Low libido 01/29/2024 Low testosterone in male 01/29/2024 Low testosterone in male 02/03/2024 Low testosterone in male 02/05/2024 Low testosterone in male 03/12/2024 Photoaging of skin Other chronic dermatitis due to solar radiation 04/02/2024 AK (actinic keratosis) Actinic keratosis 04/02/2024 Lentigines Other dyschromia 04/02/2024 Seborrheic keratoses 04/02/2024 Sebaceous gland hyperplasia Other specified disease of sebaceous glands 04/02/2024 Kemp angioma Nevus, non-neoplastic 04/02/2024 History of basal cell carcinoma Personal history of other malignant neoplasm of skin 04/02/2024 History of squamous cell carcinoma Personal history of malignant neoplasm of other site 04/02/2024 Screening for skin cancer Screening for malignant neoplasm of the skin 04/02/2024 Hypogonadism 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 04/22/2024 Low testosterone in male 07/23/2024 Hypogonadism 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 07/23/2024 Low libido 07/23/2024 Low testosterone in male 07/31/2024 Hypogonadism 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 07/31/2024 Low libido 07/31/2024 Low testosterone in male 08/05/2024 Hypogonadism 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 08/05/2024 Low libido 08/05/2024 Low testosterone in male 08/05/2024 Obstructive sleep apnea Obstructive sleep apnea (adult) (pediatric) 08/31/2024 Tiredness Other malaise and fatigue 08/31/2024 Essential hypertension Unspecified essential hypertension 08/31/2024 Obstructive sleep apnea Obstructive sleep apnea (adult) (pediatric) 09/01/2024 Obstructive sleep apnea Obstructive sleep apnea (adult) (pediatric) 09/01/2024 Photoaging of skin Other chronic dermatitis due to solar radiation 09/23/2024 Screening for skin cancer Screening for malignant neoplasm of the skin 09/23/2024 Lentigines Other dyschromia 09/23/2024 SK (seborrheic keratosis) Other seborrheic keratosis 09/23/2024 Kemp angioma Nevus, non-neoplastic 09/23/2024 History of basal cell carcinoma Personal history of other malignant neoplasm of skin 09/23/2024 History of squamous cell carcinoma Personal history of malignant neoplasm of other site 09/23/2024 AK (actinic keratosis) Actinic keratosis 09/23/2024 Care Teams Document Management Analyst Relationship Specialty Start Date End Date Sajan Alex MD PCP - General Family Medicine 01/25/22
== END 2025-05-04 23:59 | disposition home or self-care (01) ==
LOC: RAD 10:55
PROVIDERS: PCP Family Medicine; Visit Provider Family Medicine
DX: M17.12 Unilateral primary osteoarthritis, left knee (principal)
CPT/HCPCS: 73562

== ENCOUNTER 2025-07-05 10:31 | Outpatient (CLI) | payer MEDICARE, SELFPAY ==
[2025-07-05 14:54] LABS: Hematocrit 49.1 % (42.0-52.0); Hemoglobin 15.9 g/dL (14.1-18.0); Immature Granulocytes % 0.4 %; Mean Corpuscular HGB Conc 32.4 g/dL (31.8-35.4); Mean Corpuscular Hemoglobin 33.4 pg (27.0-31.2); Mean Corpuscular Volume 103.2 fl (80-94); Nucleated Red Blood Cells % 0 %; Platelet Count 229 K/mm3 (142-424); Red Blood Count 4.76 M/mm3 (4.60-6.20); Red Cell Distribution Width-SD 49.3 fL; White Blood Count 7.0 K/mm3 (4.8-10.8)
[2025-07-05 17:02] LABS: Alanine Aminotransferase 24 U/L (12-78); Albumin Level 4.2 g/dl (3.5-5.0); Albumin/Globulin Ratio 1.5 (1.1-1.8); Alkaline Phosphatase 73 U/L (38-126); Anion Gap 13.4 mEq/L (5-15); Aspartate Amino Transferase 26 U/L (17-59); Bilirubin,Total 0.8 mg/dl (0.2-1.3); Blood Urea Nitrogen 20 mg/dl (9-20); Calcium 9.3 mg/dl (8.4-10.2); Carbon Dioxide 28 mmol/L (22.0-30.0); Chloride 101 mmol/L (98-107); Cholesterol 108 mg/dl (140-200); Creatinine,Serum 1.00 mg/dl (0.66-1.25); Estimated Glomerular Filt Rate 72 ml/min (>60); GFR (African American) 87 ML/MIN (>60); Globulin 2.8 g/dL (1.3-3.2); Glucose 125 mg/dl (74-100); HDL Cholesterol 46 mg/dl (40-60); Potassium 4.4 mmoL/L (3.5-5.1); Sodium 138 mmol/L (136-145); Total Protein,Serum 7.0 g/dl (6.3-8.2); Triglycerides 102 mg/dl (30-150)
[2025-07-05 19:15] LABS: Hepatitis C Ab Qual. W/ RFX NEGATIVE (Negative)
[2025-07-05 19:45] LABS: Hemoglobin A1C 7.7 % (4.0-6.0)
[2025-07-06 08:23] LABS: Hepatitis B Surface Antigen Negative (Negative); Testosterone,Total 923 ng/dL (264-916)
--- OUTSIDE RECORDS SUMMARY | 2025-07-06 10:51 | XMS_ITS | Encounter Summary ---
Author Organization [facility] Address [address] [place] [address] Care Team Providers Care Animal Keeper Head Name Role Phone Yusuf Lind MD Primary Care Provider Stacia Bravo RN Unavailable [phone] Yobani Rosario MD Unavailable [phone] Oly Albert SENIOR ART DIRECTOR Unavailable [phone] Luiz Roberts MD Unavailable [phone] Rina Youssef SENIOR ART DIRECTOR Unavailable Unavailable Grady Longoria MD Unavailable [phone] Encounter Details Date Type Department Care Team (Late st Contact Info) Description 09/21/2021 E-Visit [facility] Information Desk [address] [place] [id number] Mychart, Generic Provider Social History Tobacco Use [...] documented as of this encounter Care Teams Animal Keeper Head Relationship Specialty Start Date End Date Yusuf Lind MD [address] [place] [address] [address] [place] [address] PCP - General Internal Medicine 06/24/20 Stacia Bravo, JOANA [address] [facility] [place] [address] Registered Nurse 08/13/21 Yobani Rosario MD [address] [place] [address]. [address] [place] [address] Critical Care Medicine 08/23/21 Oly Albert NP [address] [place] [address] Nurse Practitioner Nurse Practitioner, Acute Care 09/22/21 Luiz Roberts MD [address] [place] [address] [address] [place] [address] Interventional Cardiology 10/20/21 Rina Youssef NP [address] [place] [address] [address] [place] [address] Nurse Practitioner Nurse Practitioner, Acute Care 10/26/21 Grady Longoria MD [address] [place] [address] [place] [address] Orthopedic Surgery 10/14/22 documented as of this encounter
--- OUTSIDE RECORDS SUMMARY | 2025-07-06 10:51 | XMS_ITS | Encounter Summary ---
Author Organization [facility] Address [address] [place] [address] Care Team Providers Care Wire Technician Name Role Phone Amanuel Staples MD Primary Care Provider [phone] Yusuf Lind MD Primary Care Provider [phone] Stacia Bravo RN Unavailable [phone] Yobani Rosario MD Unavailable Oly Albert STEPDOWN NURSE Unavailable [phone] Luiz Roberts MD Unavailable [phone] Rina Youssef STEPDOWN NURSE Unavailable Unavailable Grady Longoria MD Unavailable [phone] Reason for Visit * Reason Onset Date Comments Questions 05/01/2013 Encounter Details Date Type Department Care Team (Late st Contact Info) Description 05/01/[address] [facility] [address] [place] [address] Celeste Lange MD [address] [address] [place] [address] Questions Social History Tobacco Use [...] on filedocumented in this encounter Care Teams Wire Technician Relationship Specialty Start Date End Date Amanuel Staples MD [address] [place] [address] PCP - General Family Medicine 03/13/13 06/23/20 Yusuf Lind MD [address] [place] [address] PCP - General Internal Medicine 06/24/20 Stacia Bravo, JOANA [address] [place] [address] Registered Nurse 08/13/21 Yobani Rosario MD [address] [place] [address] [address] [place] [address] Critical Care Medicine 08/23/21 Oly Albert NP [address] [place] [address] [place] [address] Nurse Practitioner Nurse Practitioner, Acute Care 09/22/21 Luiz Roberts MD [address] [place] [address] [address] [place] [address] Interventional Cardiology 10/20/21 Rina Youssef NP [address] [place] [address] [address] [place] [address] Nurse Practitioner Nurse Practitioner, Acute Care 10/26/21 Grady Longoria MD [address] [facility] [address] [place] [address] [place] [address] Orthopedic Surgery 10/14/22 documented as of this encounter
--- OUTSIDE RECORDS SUMMARY | 2025-07-06 10:51 | XMS_ITS | Clinical Summary ---
Author Organization [facility] Address [address] [place] [address] Care Team Providers Care Reporting Specialist Name Role Phone Yusuf Lind MD Primary Care Provider [phone] Stacia Bravo RN Unavailable [phone] Yobani Rosario MD Unavailable Oly Albert ENVIRONMENTAL MARKETING REPRESENTATIVE Unavailable [phone] Luiz Roberts MD Unavailable Rina Youssef ENVIRONMENTAL MARKETING REPRESENTATIVE Unavailable Unavailable Grady Longoria MD Unavailable Allergies Active Allergy Reactions Criticality Noted Date [...] Sars-Cov-2 Vaccine 1 2+yrs Old (PFIZER) 07/23/2022 [id number] Vaccine 1 2+YRS Old (PFIZER Purple) 07/18/2021,07/18/2021,07/08/2021,2020,12/24/2020,12/08/2020,12/03/2020,0 12/03/2020 Flu Enhanced Dose =>65 or Tr ansplant Pat 06/08/2020 Influenza 07/23/2022, 1,07/07/2021,2019,07/07/2014 Influenza (whole) 07/07/2014 Pneumococcal 20-valent Conju gate Vaccine (PREVNAR) 10/31/2021 [...] Comments Diabetes Mellitus Foot Care (Yearly) 1944 Tetanus Vaccination (Every 1 0 Years) 1962 Zoster-RZV(Shingrix) (1 of 2) 1994 RSV Vaccines (1 - 1-dose 75+ series) 2019 Diabetes A1c Monitoring 02/11/2022 08/14/2021, 07/27 Lipid Monitoring 08/14/2022 08/14/2021, 07/27/2020 Fall Risk Assessment 10/31/2022 10/31/2021 Advance Care Planning 10/07/2024 Depression Screening 10/07/2024 10/31/2021, 06/24/20 20 Diabetes Mellitus Microalbum in (Yearly) 10/07/2024 Renal Monitoring 10/07/2024 08/15/2021, 05/2021, 08/13/2021, Additional history exists COVID-19 Vaccine ( season) 2025 07/23/2022, 07/18/2021, 07/18/2021, Additional history exists Influenza Vaccination (#1) 06/07/202507/23, 09/21/2021, 07/07/2021, Additional history exists Lipid Screening Discontinued 08/14/2021, 07/27/2020 Pneumococcal Vaccine: 50+ Years Completed , 11/05/2020 Influenza Vaccination (Yearly) Discontinued 1 , 09/21/2021, 07/07/2021, Additional history exists Medical Devices Implanted Type Area Clean Rice Grader And Reel Tender Device Identifier Shelf Expiration Date Model / Serial / Lot Altrx Acetabular Liner 36mm Implanted:Qty: 1 on 07/06/2014 by Grady Longoria MD at [facility] Left: Hip 04/05/2019 1221-36-154 / / [id number] Pinn Sector W/Gription 54mm Implanted:Qty: 1 on 07/06/2014 by Grady Longoria MD at [facility] Left: Hip * J \T\ J DEPUY 06/06/2024 1217-32-054 / / [id number] Femoral Stem Tri-Lock 09/19 109mm Implanted:Qty: 1 on 07/06/2014 by Grady Longoria MD at [facility] Left: Hip * USE JJ DEPU 05/06/2024 1012-04-070 / / [id number] Hip Delta Cer Hd 09/19 36mm Implanted:Qty: 1 on 07/06/2014 by Grady Longoria MD at [facility] Left: Hip * J \T\ J DEPUY 03/06/2019 [id number] / / [id number] Hip Total Con Tier 3 Depuy Implanted:Qty: 1 on 07/06/2014 by Grady Longoria MD at [facility] Left: Hip * J \T\ J DEPUY HIPS TIER 3 / / TOTAL HIP Pinn Sector W/Gription 54mm Implanted:Qty: 1 on 09/19/2016 by Grady Longoria MD at [facility] Right: Hip * J \T\ J DEPUY 07/06/2026 1217-32-054 / / [id number] Altrx Acetabular Liner 36mm Implanted:Qty: 1 on 09/19/2016 by Grady Longoria MD at [facility] Right: Hip * J \T\ J DEPUY 07/06/2021 [id number] / / [id number] Stem Fem Std Collar Corail 12 Implanted:Qty: 1 on 09/19/2016 by Grady Longoria MD at [facility] Right: Hip * J \T\ J DEPUY 07/06/2021 [id number] / / [id number] Hd Oxinium Fem 09/19 36 Mm -3 Implanted:Qty: 1 on 09/19/2016 by Grady Longoria MD at [facility] Right: Hip * SUN \T\ NEPHEW 07/24/2026 [id number] / / [id number] Procedures Procedure Name Priority Date/Time Associated Diagnosis Comments BASIC METABOLIC PANEL (BMP=EP1) Routine 08/15/2021 1:42 PM EST HGB, A1C (GLYCOHEMOGLOBIN) Routine 08/14/2021 4:46 AM EST LIPID PROFILE Routine 08/14/2021 4:46 AM EST from Last [...] [email or web address] Calcium 9.8 8.8 - 10.9 mg/dL [facility] GFR MDRD Non Af Amer 63 See Note [facility] Comment: GFR is estimated using Creatinine, age, gender and race. Patient's values should be interpreted as a trend. Between 30 and 90 ml/min/1.73m2, clinical correlation is needed. For additional information: [email or web address] BUN/Creatinine Ratio 18 [facility] Serum 08/15/2021 1:42 PM EST 08/15/2021 2:45 PM EST us Jairon Fu MD CHEMISTRY ORDERABLES Final Result Performing Organization Address [facility] Co de Phone Number [facility] [address] * (ABNORMAL) LIPID PROFILE (08/14/2021 4:46 AM EST) Chol/HDL Ratio 2.4 0 - 5 [facility] XTERNAL LAB Cholesterol 104(L) 125 - 199 mg/dL [facility] Comment: TOTAL CHOLESTEROL INTERPRETATION: Less than 200 mg/dL Desireable 200-239 mg/dL Borderline Greater or Equal to 240 mg/dL High LDL Calculated 48 0 - 100 mg/dL [facility] Comment: LDL CHOLESTEROL INTERPRETATION: [...] Rosario MD CHEMISTRY ORDERABLES F inal Result [facility] [address] * (ABNORMAL) HGB, A1C (GLYCOHEMOGLOBIN) (08/14/2021 4:46 AM EST) Hgb A1C 7.1(H) 4.0 - 5.6 % [facility] Comment: Reference Ranges for [...] Glycohemoglobin Standardization program (NGSP) and traceable to [facility]. Estimated Average Glucose 157(H) 68 - 114 mg/dL [facility] Whole Blood 08/14/2021 4:46 AM EST 08/15/2021 1:57 PM EST Jairon Fu MD CHEMISTRY ORDERABLES Final Result Performing Organization Address [facility] de Phone Number [facility] [address] from Last 3 Months or Most Recently Relevant to Health Maintenance Insurance [facility] MEDICARE [employer] MEDICARE [employer] [place] [address] [place] [address] [facility] MEDICARE [facility] Advance Directives For more information, please contact: [phone] * Full Code (Latest Code Status on File) Date Activated Date Inactivated Comments 08/13/2021 8:18 PM No automated c hest compression devices for [facility]AD Patients * Full Code Date Activated Date Inactivated Comments 09/19/2016 9:55 AM 09/20/2016 4:07 PM * Full Code Date Activated Date Inactivated Comments 07/06/2014 10:42 AM 07/07/2014 7:06 PM Care Teams Reporting Specialist Relationship Specialty Start Date End Date Yusuf Lind MD [address] [place] [address] [address] [place] [address] PCP - General Internal Medicine 06/24/20 Stacia Bravo, RN [address] [id number] Registered Nurse 08/13/21 Yobani Rosario MD [address] [place] [address] [address] [place] [id number] Critical Care Medicine 08/23/21 Oly Albert NP [address] [place] [address] Nurse Practitioner Nurse Practitioner, Acute Care 09/22/21 Luiz Roberts MD [address] [place] [address] [address] [place] [address] Interventional Cardiology 10/20/21 Rina Youssef NP [address] [place] [address] Nurse Practitioner Nurse Practitioner, Acute Care 10/26/21 Grady Longoria MD [address] [facility] [place] [address] Orthopedic Surgery 10/14/22
--- OUTSIDE RECORDS SUMMARY | 2025-07-06 10:52 | XMS_ITS | Continuity of Care Document ---
Author Organization [facility] Address [facility] [place] [address] Phone Care Team Providers Care Metal Bed Assembler Name Role Phone Sajan Alex MD Primary Care Provider [phone] Encounters Date Type Department Care Team Description 09/23/2024 2:00 PM EST Office Visit [facility] [address] [place] [address] Atif Burnett Photoaging of skin (Primary Dx); Screening for skin cancer; Lentigines; SK (seborrheic keratosis); Kemp angioma; History of basal cell carcinoma; History of squamous cell carcinoma; AK (actinic keratosis) 09/20/2024 Travel 09/01/2024 Orders Only [facility] [address] [address] Rosic, Jayy, AMPHIBIOUS OPERATIONS OFFICER Obstructive sleep apnea (Primary Dx) 09/01/2024 Orders Only [facility] [address] [address] Rosic, Jayy, AMPHIBIOUS OPERATIONS OFFICER Obstructive sleep apnea (Primary Dx) 08/31/2024 2:00 PM EST Office Visit [facility] [address] [address] Rosic, Jayy, AMPHIBIOUS OPERATIONS OFFICER Obstructive sleep apnea (Primary Dx); Tiredness; Essential hypertension 08/28/2024 Travel 08/05/2024 Orders Only [facility] [address] [phone] Corinne Calvin PA-C Low testosterone in male; Hypogonadism male; Low libido 08/05/2024 3:00 PM EDT Clinical Support [facility] Urology [address] [phone] Suzanne Quijano MA 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) 08/04/2024 Travel 07/31/2024 Refill [facility] Urology [address] [phone] Corinne Calvin PA-C Medication Refill 07/23/2024 3:30 PM EDT Office Visit [facility] Urology [address] [phone] Corinne Calvin PA-C 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); Hypogonadism male; Low libido 07/19/2024 Travel 04/22/2024 2:00 PM EDT Office Visit [facility] Urology [address] [phone] Everett Webster PA Hypogonadism 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) 04/21/2024 Travel 04/02/2024 8:45 AM EDT Office Visit [facility] DERMATOLOGY [address] [place] [address] Atif Burnett Photoaging of skin (Primary Dx); AK (actinic keratosis); Lentigines; Seborrheic keratoses; Sebaceous gland hyperplasia; Kemp angioma; History of basal cell carcinoma; History of squamous cell carcinoma; Screening for skin cancer 03/31/2024 Travel 03/12/2024 8:10 AM EDT - 03/12/2024 11:59 PM EDT Hospital Encounter [facility] [address] [place] [address] Low testosterone in male Discharge Disposition: Home or Self Care 02/05/2024 Orders Only [facility] Urology [address] [phone] Warning, Everett A PA 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) 02/03/2024 9:12 AM EDT - 02/03/2024 11:59 PM EDT Hospital Encounter [facility] [address] [place] [address] Low testosterone in male Discharge Disposition: Home or Self Care 01/29/2024 Orders Only [facility] Urology NPTFTT [address] [place] [phone] Warning, Everett A, PA Low libido (Primary Dx); Low testosterone in male 01/27/2024 9:31 AM EDT - 01/27/2024 11:59 PM EDT Hospital Encounter [facility] [address] [place] [address] Low libido Discharge Disposition: Home or Self Care 01/22/2024 1:30 PM EDT Office Visit [facility] Urology NPTFTT [address] [place] [phone] Warning, Everett A, PA Low libido (Primary Dx) 01/19/2024 Travel 10/03/2023 9:00 AM EST Office Visit [facility] DERMATOLOGY [address] [place] [address] Atif Burnett Photoaging of skin (Primary Dx); Screening for skin cancer; History of basal cell carcinoma; History of squamous cell carcinoma; AK (actinic keratosis); Lentigines; Seborrheic keratoses; Sebaceous gland hyperplasia; Kemp angioma; Inflamed skin tag; Other disturbances of skin sensation 09/29/2023 Travel 08/23/2023 Orders Only [facility] Sleep Disorder Center [address] [place] [address] Rosic, Jayy, AMPHIBIOUS OPERATIONS OFFICER Obstructive sleep apnea (Primary Dx) 08/23/2023 7:45 AM EST Office Visit [facility] Sleep Medicine [address] [address] Rosic, Jayy, AMPHIBIOUS OPERATIONS OFFICER Obstructive sleep apnea (Primary Dx); Tiredness; Hyperlipidemia, unspecified hyperlipidemia type 08/20/2023 Travel 01/25/2023 11:00 AM EDT Office Visit [facility] DERMATOLOGY [address] [place] [address] Atif Burnett Neoplasm of unspecified behavior of bone, soft tissue, and skin (Primary Dx); AK (actinic keratosis); History of squamous cell carcinoma; Photoaging of skin; Lentigines; Seborrheic keratoses; Kemp angioma; History of basal cell carcinoma; Sebaceous gland hyperplasia 01/20/2023 Travel 08/15/2022 9:40 AM EST Anesthesia Event [facility] [address] [place] [address] Jonah Riggs MD Giles Lucía Flynn, [facility] 08/15/2022 Travel 08/15/2022 9:30 AM EST - 08/15/2022 9:45 AM EST Surgery [facility] [address] [place] [address] Dash Hartley MD CATARACT EXTRACTION WITH PHACOEMULSIFICATION AND INTRAOCULAR LENS 08/15/2022 8:30 AM EST - 08/15/2022 10:27 AM EST Hospital Encounter [facility] [address] 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) 08/10/2022 2:00 PM EDT Office Visit [facility] Sleep Medicine [address] [address] RosJayy calloway, AMPHIBIOUS OPERATIONS OFFICER Obstructive sleep apnea (Primary Dx); Tiredness; Type 2 diabetes mellitus without complication, unspecified whether intermediate insulin use (HCC); Essential hypertension 07/27/2022 8:15 AM EDT Office Visit [facility] DERMATOLOGY [address] [address] Atif Burnett Neoplasm of unspecified behavior of bone, soft tissue, and skin (Primary Dx); Actinic keratosis; Lentigines; Seborrheic keratoses; Sebaceous gland hyperplasia; Kemp angioma; History of basal cell carcinoma; History of squamous cell carcinoma; Photoaging of skin 06/13/2022 Travel 06/13/2022 7:30 AM EDT - 06/13/2022 7:45 AM EDT Surgery [facility] [address] [place] [address] Dash Hartley MD CATARACT EXTRACTION WITH PHACOEMULSIFICATION AND INTRAOCULAR LENS 06/13/2022 7:30 AM EDT Anesthesia Event [facility] [place] [address] [place] [phone] Yusuf Barron MD Costantini, Carey H, MD 06/13/2022 6:35 AM EDT - 06/13/2022 8:23 AM EDT Hospital Encounter [facility] [address] [place] [address] Dash Hartley MD Discharge Disposition: Home or Self Care 06/08/2022 Travel 01/25/2022 8:30 AM EDT Office Visit [facility] DERMATOLOGY [address] [address] Atif Burnett Inflamed seborrheic keratosis (Primary Dx); Other disturbances of skin sensation; Actinic keratosis; History of basal cell carcinoma; History of squamous cell carcinoma; Screening for skin cancer; Photoaging of skin; Lentigines; Seborrheic keratoses; Sebaceous gland hyperplasia; Kemp angioma; Neoplasm of unspecified behavior of bone, soft tissue, and skin 10/17/2021 2:45 PM EST Office Visit [facility] Sleep Medicine [address] [address] Corinne Zaragoza MD Obstructive sleep apnea (Primary Dx) 09/04/2021 Travel 09/04/2021 2:00 PM EST Clinical Support [facility] DERMATOLOGY [address] [address] Atif Burnett Visit for suture removal (Primary Dx) 08/28/2021 2:00 PM EST Procedure visit [facility] DERMATOLOGY [address] [place] [address] Atif Burnett 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) 08/03/2021 Orders Only [facility]OLOGY [address] [place] [address] Atif Burnett AK (actinic keratosis) (Primary Dx) 07/27/2021 Travel 07/27/2021 8:00 AM EDT Office Visit [facility] DERMATOLOGY [address] [place] [address] Atif Burnett Neoplasm of unspecified behavior of bone, soft tissue, and skin (Primary Dx); Actinic keratosis; Kemp angioma; Lentigines; Screening for skin cancer; Photoaging of skin; History of basal cell carcinoma; History of squamous cell carcinoma; Sebaceous gland hyperplasia 01/19/2021 Travel 01/19/2021 9:00 AM EDT Procedure visit [facility] DERMATOLOGY [address] [place] [address] Atif Burnett Keratoacanthoma (Primary Dx); AK (actinic keratosis); Lentigines; Kemp angioma; Sebaceous gland hyperplasia; Photoaging of skin; Screening for skin cancer 01/04/2021 Orders Only [facility] DERMATOLOGY [address] [place] [address] Atif Burnett 12/29/2020 Travel 12/29/2020 9:45 AM EDT Office Visit [facility] DERMATOLOGY [address] [place] [address] Atif Burnett Neoplasm of unspecified behavior of bone, soft tissue, and skin (Primary Dx) 12/02/2020 Travel 10/12/2020 8:45 AM EST Office Visit [facility] Sleep Medicine [address] [place] [address] Tammi Finch APRN Obstructive sleep apnea (Primary Dx); Obstructive sleep apnea (adult) (pediatric); Type 2 diabetes mellitus without complication, unspecified whether intermediate insulin use (HCC); Essential hypertension; Obesity (BMI 30.0-34.9); IVET (obstructive sleep apnea) 08/15/2020 Travel 08/15/2020 9:15 AM EST Procedure visit [facility] [address] [place] [address] Atif Burnett 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 Sleep Disorder Center [place] [address] [facility] [address] [place] [address] Uss, Bill Sleep Obstructive sleep apnea (Primary Dx) Discharge Disposition: Home or Self Care 07/27/2020 Orders Only [facility] [address] [place] [address] Atif Burnett 07/27/2020 Orders Only [facility] [address] [place] [address] Atif Burnett 07/27/2020 Orders Only [facility] [address] [place] [address] Atif Burnett 07/27/2020 Orders Only [facility] [address] [place] [address] Atif Burnett 07/27/2020 Orders Only [facility] [address] [place] [address] Atif Burnett 07/27/2020 Orders Only [facility] [address] [place] [address] Atif Burnett 07/27/2020 Travel 07/27/2020 3:00 PM EDT Office Visit [facility] [address] [place] [address] Atif Burnett Neoplasm of unspecified behavior of bone, soft tissue, and skin (Primary Dx); Screening for skin cancer; SK (seborrheic keratosis); Lentigines; AK (actinic keratosis); History of basal cell carcinoma; History of squamous cell carcinoma; Kemp angioma; Sebaceous gland hyperplasia; Photoaging of skin 07/19/2020 Orders Only [facility] Sleep Disorder [address] [place], [place] [address] Corinne Zaragoza MD Obstructive sleep apnea (adult) (pediatric) (Primary Dx) 07/18/2020 Orders Only [facility] Sleep Disorder [address] [place], [place] [phone] Corinne Zaragoza MD Obstructive sleep apnea (Primary Dx) 07/12/2020 12:45 PM EDT Office Visit [facility] Sleep Medicine [address] [address] Corinne Zaragoza MD Type 2 diabetes mellitus without complication, unspecified whether long term care phlebotomist insulin use (HCC) (Primary Dx); Essential hypertension; Obstructive sleep apnea 07/07/2019 3:45 PM EDT Office Visit [facility] Sleep Medicine [address] [address] Corinne Zaragoza MD Obstructive sleep apnea (Primary Dx); Obesity (BMI 30.0-34.9); Type 2 diabetes mellitus without complication, unspecified whether intermediate insulin use (HCC); Essential hypertension 12/12/2018 2:30 PM EST - 12/12/2018 11:59 PM EST Hospital Encounter [facility] [address] [place] [address] 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 Physical Therapy [address] [address] Yovani Skinner, PT Localized osteoarthritis of left knee Discharge Disposition: Home or Self Care 06/03/2017 12:30 PM EDT Office Visit [facility] [address] [facility] [address] [place] [address] Chance Costa MD Disturbance of smell and taste (Primary Dx); Type 2 diabetes mellitus with complication, unspecified intermediate insulin use status 05/21/2017 10:00 AM EDT Office Visit [facility] [address] [place] [address] Corinne Zaragoza MD Obstructive sleep apnea (Primary Dx); Essential hypertension; Obesity (BMI 30.0-34.9) 04/15/2017 1:15 PM EDT Office Visit E[facility] E[facility] [address] [facility] [address] [place] [address] Mamadou Ring MD Disturbance of smell and taste (Primary Dx); Abnormal auditory perception of both ears 02/26/2017 9:37 AM EDT - 02/26/2017 11:59 PM EDT Hospital En[facility] [place] [address] H/O asbestos exposure Discharge Disposition: Home or Self Care 02/19/2017 Abstract [facility] [address] [place] [address] Soraya Clarke, DISABILITY INSURANCE CLAIM EXAMINER 02/19/2017 8:00 AM EDT - 02/19/2017 11:59 PM EDT Hospital Encounter [facility] [address] [place] [address] Discharge Disposition: Home or Self Care 08/03/2016 Telephone [facility] [address] [place] [address] Colton Barker MD Cardiology Clearance 08/01/2016 Telephone [facility] [facility] [address] [place] [phone] Colton Barker MD Cardiology Clearance 07/17/2016 7:51 AM EDT - 07/17/2016 11:59 PM EDT Hospital Encounter [facility] [address] [place] [address] Colton Barker MD Pre-op testing; IVET (obstructive sleep apnea); Preoperative cardiovascular examination Discharge Disposition: Home or Self Care 07/17/2016 7:15 AM EDT - 07/17/2016 7:50 AM EDT Hospital Encounter [facility] [address] [place] [address] Colton Barker MD Pre-op testing; IVET (obstructive sleep apnea); Preoperative cardiovascular examination Discharge Disposition: Home or Self Care 07/11/2016 7:45 AM EDT Office Visit [facility] H&V NPTFTT [address] [place] [phone] Colton Barker MD Pre-op testing (Primary Dx); IVET (obstructive sleep apnea); Preoperative cardiovascular examination 06/13/2016 Orders Only [facility] Sleep Disorder [address] [address] Corinne Zaragoza MD Obstructive sleep apnea (Primary Dx) 05/11/2016 9:00 AM EDT Office Visit [facility] [address] [phone] Corinne Zaragoza MD IVET (obstructive sleep apnea) (Primary Dx); Obesity (BMI 30.0-34.9) 09/07/2015 11:56 AM EST - 09/07/2015 11:59 PM EST Hospital Encounter [facility] Sleep Disorder [address] [address] Corinne Zaragoza MD IVET (obstructive sleep apnea) (Primary Dx); Obesity (BMI 30.0-34.9) Discharge Disposition: Home or Self Care 05/13/2015 11:45 AM EDT - 05/13/2015 11:59 PM EDT Hospital Encounter [facility] Sleep Disorder Center [place] [address] [facility] [place] [address] Corinne Zaragoza MD IVET (obstructive sleep apnea) (Primary Dx); Type 2 diabetes mellitus without complication (HCC); Obesity (BMI 30.0-34.9) Discharge Disposition: Home or Self Care 04/22/2015 10:30 AM EDT Office Visit [facility] 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); Encounter for long-term (current) use of other medications; senior living (current) use of anticoagulants Discharge Disposition: Home or Self Care 04/05/[address] [place], [place] [phone] Colton Baldwin MD Colonoscopy (SCREENING) 03/27/2010 8:38 PM EDT - 03/27/2010 11:59 PM EDT Hospital Encounter [facility] Amanuel Staples MD 02/10/2009 10:00 PM EDT - 02/10/2009 11:59 PM EDT Hospital Encounter [facility] Amanuel Staples MD 03/24/2008 Hospital Encounter [facility] MEDICINE [facility]TT [...] Mother Social History Smoking Status as of 07/06/2025 Tobacco Use Types Packs/Day Years Used Date [...] 04/22/2024 1:48 PM EDT Plan of Treatment Upcoming Encounters Date Type Department Care Team (Late st Contact Info) Description 11/23/2025 9:45 AM EST Office Visit [facility] [address] [place] [address] Tanya Burnett MD [address] [place] [address] Medical Devices Implanted Type Area Field Service Analyst Device Identifier Shelf Expiration Date Model / Serial / Lot Lens Iol 1-Piece 20.5 Diopter Preloaded Acrylic Foldable Pc - [id number] Implanted:Qty: 1 on 06/13/2022 by Dash Hartley MD at [facility] Right: Eye DARLINE LAB:SURG [id number] 09/24/2024 CNA0T0.205 / [id number] / Lens Iol 1-Piece 20.0 Diopter Preloaded Acrylic Foldable Pc - [id number] Implanted:Qty: 1 on 08/15/2022 by Dash Hartley MD at [facility] Left: Eye DARLINE LAB:SURG [id number] 12/12/2024 CNA0T0 .200 / [id number] / Procedures Procedure Name Priority Date/Time [...] long-term (current) use of other medications senior living (current) use of anticoagulants PT / INR Callback 06/29/2014 11:00 AM EDT Primary localized osteoarthrosis, pelvic region and thigh Anemia, unspecified Primary localized osteoarthrosis, 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) Encounter for long-term (current) use of other medications senior living (current) use of anticoagulants BASIC METABOLIC PANEL Callback 06/29/2014 11:00 AM EDT Primary localized osteoarthrosis, pelvic region and thigh Anemia, unspecified Primary localized osteoarthrosis, 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) Encounter for long-term (current) use of other medications intermediate manager (current) use of anticoagulants CBC Callback 06/29/2014 11:00 AM EDT Primary localized osteoarthrosis, pelvic region and thigh Anemia, unspecified Primary localized osteoarthrosis, 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) Encounter for long-term (current) use of other medications senior living (current) use of anticoagulants SCANNED LABS 07/14/2010 [...] POC Yellow Color 08/05/2024 3:17 PM EDT [facility] UROLOGY [facility] Appear POC Clear Clear 08/05/2024 3:17 PM EDT [facility]OLOGY [facility] Gluc POC Negative Negative mg/dL 08/05/2024 3:17 PM EDT [facility]OLOGY [facility] [place] Bili POC Negative Negative 08/05/2024 3:17 PM EDT [facility] [place] Ketones POC Negative Negative mg/dL 08/05/2024 3:17 PM EDT [facility] UROLOGY [facility] [place] SG POC 1.020 1.001 - 1.035 no units 08/05/2024 3:17 PM EDT [facility] UROLOGY [facility] [place] Blood POC Negative Negative 08/05/2024 3:17 PM EDT [facility] [place] pH POC 5.0 5.0 - 8.0 pH 08/05/2024 3:17 PM EDT [facility] UROLOGY [facility] [place] Protein POC Negative Negative mg/dL 08/05/2024 3:17 PM EDT [facility] UROLOGY [facility] [place] Urobilinogen POC 0.2 0.2, 1.0 08/05/2024 3:17 PM EDT [facility] [place] [place] [facility] Nitrite POC Negative Negative 08/05/2024 3:17 PM EDT [facility] [place] [facility] Leuk Est POC Negative Negative 3:17 PM EDT [facility] [place] Urine URINE SPECIMEN COLLECTION / Unknown 08/05/2024 3:14 PM EDT 08/05/2024 3:17 PM EDT us Corinne Calvin PA-C POINT OF CARE TEST ORDERAB LES Final Result [facility] [place] [place] [address] [place] [address] * (ABNORMAL) TESTOSTERONE FREE/TOTAL ADULT MALE - REF LAB (03/12/2024 8:12 AM EDT) Only the most recent of3 resultswithin the time period is included. Testosterone, Adult Male 207(L) 300 - 720 ng/dL 03/13/2024 7:52 PM EDT [facility] Comment: INTERPRETIVE INFORMATION: Testosterone by Immunoassay Testosterone immunoassays are both imprecise and inaccurate at low testosterone concentrations, such as those found in children and cisgender females. For these individuals, testing by mass spectrometry is recommended; refer to Testosterone (Adult Females, Children, or Individuals on Testosterone-Suppressing Hormone Therapy) ([facility] [address] test code 5266127). Free or bioavailable testosterone measurements may provide supportive information. For individuals on testosterone hormone therapy, refer to cisgender male reference intervals. No reference intervals have been established for males younger than 14 years or for cisgender females. For a complete set of all established reference intervals, refer to [employer].Plated/Tests/Pub/[id number]. Testosterone, Percentage Free 1.9 1.6 - 2.9 % 03/13/2024 7:52 PM EDT [facility] Comment: Performed By: [facility] [address] [place] [id number] [employer] Mechanic: Niles Degroot MD, PhD CLIA Number: [id number] SHBG 28 19 - 76 nmol/L 03/13/2024 7:52 PM EDT [facility] Comment: REFERENCE INTERVAL: Sex Hormone Binding Globulin Access complete set of age- and/or gender-specific reference intervals for this test in the [facility] Test Directory (Plated). Free T Calc 39(L) 47 - 244 pg/mL 03/13/2024 7:52 PM EDT [facility] Comment: INTERPRETIVE INFORMATION: Testosterone, Free Calculation Free [...] Children, or Individuals on Testosterone-Suppressing Hormone Therapy) ([address] test code 0116038). For individuals on testosterone hormone therapy, refer to cisgender male reference intervals. No reference intervals have been established for males younger than 14 years or for cisgender females. For a complete set of all established reference intervals, refer to ltd.Plated/Tests/Pub/[id number]. Blood VENOUS BLOOD / Unknown Venipuncture / Unknown 03/12/2024 8:12 AM EDT 03/12/2024 8:12 AM EDT us Everett A Warning PA CHEMISTRY ORDERABLES Final R esult [facility] [address] [place] [address] * LH/FSH (02/03/2024 9:13 AM EDT) LH 6.27 mIU/mL 02/03/2024 4:29 PM EDT [facility] Comment: Suggested Reference Ranges (mIU/mL) Females Follicular Phase 2.4 - 12.6 Ovulation Phase 14.0 - 95.6 Luteal Phase 1.0 - 11.4 Postmenopause 7.7 - 58.5 Males 1.7 - 8.6 FSH 4.78 mIU/mL 02/03/2024 4:29 PM EDT [employer] Comment: Suggested Reference Range (mIU/mL) Females Follicular Phase 3.5 - 12.5 Ovulation Phase 4.7 - 21.5 Luteal Phase 1.7 - 7.7 Postmenopause 25.8 - 134.8 Males 1.5 - 12.4 Blood VENOUS BLOOD / Unknown Venipuncture / Unknown 02/03/2024 9:13 AM EDT 02/03/2024 9:13 AM EDT Narrative [facility] - 02/03/2024 4:29 PM EDT Ingestion of erin doses of biotin (>5 mg/day) taken within 8 hours of drawing blood sample can interfere with this immunoassay test. us Everett A Warning PA IMMUNOLOGY ORDERABLES Final Result [facility] [address] [facility] , [place] [address] * (ABNORMAL) CBC (02/03/2024 9:13 AM EDT) [...] % 02/03/2024 4:23 PM EDT [facility] Platelet 216 155 - 369 x10(3)/mcL 02/03/2024 4:23 PM EDT [facility] MPV 10.0 8.8 - 12.5 fL 02/03/2024 4:23 PM EDT [facility] [employer] [facility] Blood VENOUS BLOOD / Unknown Venipuncture / Unknown 02/03/2024 9:13 AM EDT 02/03/2024 9:13 AM EDT Everett A Warning PA HEMATOLOGY ORDERABLES Final Result Performing Organization Address [facility] de Phone Number [facility] [employer] , [place] [address] * PROLACTIN LEVEL (02/03/2024 9:13 AM EDT) Pathologist [facility] Prolactin 14.70 4.04 - 15.20 ng/mL 02/03/2024 4:29 PM EDT [facility] [employer] [facility] Blood VENOUS BLOOD / Unknown Venipuncture / Unknown 02/03/2024 9:13 AM EDT 02/03/2024 9:13 AM EDT Narrative [facility] [employer], [facility] - 02/03/2024 4:29 PM EDT Ingestion of erin doses of biotin (>5 mg/day) taken within 8 hours of drawing blood sample can interfere with this immunoassay test. Everett A Warning PA CHEMISTRY ORDERABLES Final R esult Performing Organization Address [facility] de Phone Number [facility] [employer] , [place] [address] * (ABNORMAL) COMPREHENSIVE METABOLIC PANEL (02/03/2024 9:13 AM EDT) Only the most recent of2 resultswithin the time period is included. Sodium 134(L) 136 - 145 mmol/L 02/03/2024 4:19 PM EDT [facility] [employer], [facility] Potassium 5.9(H) 3.5 - 5.0 mmol/L 02/03/2024 4:19 PM EDT [facility] Chloride 99 98 - 107 mmol/L 02/03/2024 4:19 PM EDT [facility] Total CO2 28 22 - 29 mmol/L 02/03/2024 4:19 PM EDT [facility] Anion Gap 7 7 - 16 mmol/L 02/03/2024 4:19 PM EDT [facility] Calcium 9.5 8.8 - 10.4 mg/dL 02/03/2024 4:19 PM EDT [facility] Glucose Lvl 217(H) 70 - 99 mg/dL 02/03/2024 4:19 PM EDT [facility] BUN 24(H) 8 - 23 mg/dL 02/03/2024 4:19 PM EDT [facility] Creatinine 1.25 0.67 - 1.30 mg/dL 02/03/2024 4:19 PM EDT [facility] Albumin 4.2 3.2 - 4.6 gm/dL 02/03/2024 4:19 PM EDT [facility] Total Protein 7.1 6.4 - 8.3 gm/dL 02/03/2024 4:19 PM EDT [facility] Bili Total 0.7 0.2 - 1.4 mg/dL 02/03/2024 4:19 PM EDT [facility] ALT 26 <=41 U/L 02/03/2024 4:19 PM EDT [facility] AST 26 <=40 U/L 02/03/2024 4:19 PM EDT [facility] Alk Phos 70 40 - 129 U/L 02/03/2024 4:19 PM EDT [facility] eGFR (CKD-EPIcr 2020) 59(L) >=60 mL/min/1.7 3 m2 02/03/2024 4:19 PM EDT [facility] Comment:Estimated GFR was ca lculated using the CKD-EPIcr (2020) equation refit without race. The equation is recommended by the National Kidney Foundation - [place] [employer] of Nephrology Task Force. Blood VENOUS BLOOD / Unknown Venipuncture / Unknown 02/03/2024 9:13 AM EDT 02/03/2024 9:13 AM EDT us Everett RODRIGUEZ CHEMISTRY ORDERABLES Final R esult Performing Organization Address [facility] Co de Phone Number [facility] [address] [facility], [place] [address] [facility] [address] [place] [id number] * DERMATOPATHOLOGY TISSUE SEND OUT REQUEST (01/30/2023 12:00 PM EDT) Only the most recent of5 resultswithin the time period is included. Tissue us Atif Burnett PATHOLOGY ORDERABLES Final Resul t Performing Organization Address [facility] de Phone Number [facility] [address] [place] [address] * INTRAOP AIRWAY PLACEMENT (08/15/2022 9:45 AM EST) Narrative [facility] - 08/15/2022 9:45 AM EST Lucía Wild, CREATIVE RESOURCE MANAGER 08/15/2022 9:45 AM Intraop Airway Placement: Date/Time: 08/15/2022 9:45 AM Airway type: Nasal cannula salter us Jonah Riggs MD [place] ANESTHESIA Final Res ult Performing Organization Address [facility] de Phone Number [facility] [address] [place] [id number] * INTRAOP AIRWAY PLACEMENT (06/13/2022 7:36 AM EDT) Narrative [facility] - 06/13/2022 7:36 AM EDT Lucía Wild, CREATIVE RESOURCE MANAGER 06/13/2022 7:36 AM Intraop Airway Placement: Date/Time: 06/13/2022 7:36 AM Airway type: Nasal cannula salter us Yusuf Barron MD [place] ANESTHESIA Final Resul t Performing Organization Address [facility] de Phone Number [facility] [address] [place] [address] * (ABNORMAL) GLUCOSE METER POC (06/13/2022 7:02 AM EDT) Pathologist [facility] Glucose Meter POC 172(H) 70 - 100 mg/dL 06/13/2022 7:04 AM EDT [facility] Sample Type Capillary 06/13/2022 7:04 AM EDT [facility] Patient Status Non-Critical Patient 06/13/2022 7:04 AM EDT [facility] Blood BLOOD SPECIMEN / Unknown 06/13/2022 7:02 AM EDT 06/13/2022 7:04 AM EDT Dash Hartley MD POINT OF CARE TEST ORDERABLE S Final Result Performing Organization Address City/[facility]/ZIP Co de Phone Number [facility] [address] [place] [address] * UNATTENDED SLEEP STUDY (07/31/2020 8:16 AM EDT) [facility] HOLLY SLEEP OVERALL RESULT [facility] DATE OF STUDY [facility] Study Type Adult [facility] PATIENT WEIGHT 229.0 [facility] APNEA INDEX 13.7 [facility] Apnea Hypopnea Index 35.5 [facility] RDI Index 35.5 [facility] Central Apnea Index 0.0 [facility] REM AHI [facility] Min O2 Saturation 81 [facility] RDI REM [facility] RDI nonREM 35.5 [facility] CPAP Device Name [facility] CPAP Pressure [facility] IPAP Pressure [facility] EPAP Pressure [facility] Auto Pressure Support [facility] Supplemental O2 [facility] Mask Type [facility] Mask Size [facility] APAP Range [facility] Auto-IPAP Max [facility] Auto-IPAP Min [facility] Pressure Support [facility] PAP Compliance % [facility] Compliance Days [facility] Residual AHI [facility] PAP 90-95th Percentile [facility] 07/31/2020 8:16 AM EDT Corinne Zaragoza MD SLEEP CENTER ORDERABLES Denita l Result Performing Organization Address City/[facility]/ZIP Co de Phone Number [facility] [address] [place] [address] * DERMATOPATHOLOGY TISSUE SEND OUT RESULT (07/27/2020 3:20 PM EDT) Only the most recent of6 resultswithin the time period is included. DERM PATHOLOGY REPORT MICRO EXAM: There are [...] Description: A specimen of skin was received [id number] us Atif Burnett PATHOLOGY ORDERABLES Final Resul t DERMATOLOGY * XR CHEST PA AND LATERAL (12/12/2018 2:43 PM EST) Only the most recent of2 resultswithin the time period is included. Anatomical Region Laterality Modality Chest Radiographic Deidre ging 12/12/2018 2:43 PM EST Impressions 12/12/2018 3:17 PM EST No acute finding. - - Narrative 12/12/2018 3:17 PM EST PA AND LATERAL CHEST X-RAY, 12/12/2018 2:43 PM CLINICAL HISTORY: [id number] COMPARISON: 02/26/2017 exam. PROCEDURE COMMENTS: Frontal and lateral views of the chest. FINDINGS: Cardiovascular structures within normal limits. No pneumonia or effusion. No pneumothorax. Procedure Note Cyrus Rosario MD - 12/12/2018 PA AND LATERAL CHEST X-RAY, 12/12/2018 2:43 PM CLINICAL HISTORY: [id number] COMPARISON: 02/26/2017 exam. PROCEDURE COMMENTS: Frontal and lateral views of the chest. FINDINGS: Cardiovascular structures within normal limits. No pneumonia or effusion.No pneumothorax. IMPRESSION: No acute finding. - - Sajan Alex MD IMG DIAGNOSTIC IMAGING ORDERABLE S Final Result * PULMONARY FUNCTION TEST (02/19/2017 8:21 AM EDT) 02/19/2017 8:21 AM EDT Impressions [facility] - 02/19/2017 8:21 AM [...] is an excerpt of the full report. Amanuel Staples MD PFT ORDERABLES Final Resul t [facility] [address] [place] [address] * NM MYOCARDIAL PERFUSION SPECT STRESS AND [...] pharmacologicallyprovoked ischemia. Preserved left ventricular systolic function. Colton Barker MD IMG NM CARDIAC ORDERABL ES Final Result * ST STRESS TEST LEXISCAN (07/17/2016 11:00 AM EDT) Anatomical Region Laterality Modality Cardiac Stress T esting 07/17/2016 9:23 AM EDT Impressions 07/17/2016 10:10 AM EDT [facility] Interpretive Statements Stress Test Lexiscan Reason for [...] MD - 07/17/2016 IMPRESSION Exercise ECG Report [facility] Interpretive Statements Stress Test Lexiscan Reason [...] EDT Sinus Bradycardia No ischemic ST changes us Colton Barker MD POINT OF CARE CARDIOLOG Y Final Result Performing Organization Address [facility] de Phone Number SEP OFFICE * PARTIAL THROMBOPLASTIN TIME (06/29/2014 11:00 AM EDT) PTT 29.2 25.6 - 35.5 second(s) [facility] Comment: Therapeutic range for [...] AM EDT 06/29/2014 3:51 PM EDT Narrative [facility] - 06/29/2014 4:[address] fax results [phone] us Grady Longoria HEMATOLOGY ORDERABLES Final Resu lt Performing Organization Address [facility] de Phone Number [facility] [address] [place] [address] * PT / INR (06/29/2014 11:00 AM EDT) PT 10.8 9.6 - 12.6 second(s) [facility] INR 0.97 0.87 - 1.13 [facility] Comment: Level of Therapy Indications Target INR Range Standard Dose Treatment and prophylaxis of venous 2.0 - 3.0 thrombosis, pulmonary embolism High Dose High risk patients with mechanical 2.5 - 3.5 heart valves Blood specimen (specimen) UPPER LIMB STRUCTURE / Unknown 06/29/2014 11:00 AM EDT 06/29/2014 3:51 PM EDT Narrative [facility] - 06/29/2014 4:[address] fax results [phone] Grady Longoria HEMATOLOGY ORDERABLES Final Resu lt [facility] [address] [place] [address] * (ABNORMAL) BASIC METABOLIC PANEL (06/29/2014 11:00 AM EDT) Sodium 139 136 - 145 mmol/L [facility] Potassium 4.5 3.5 - 5.0 mmol/L [facility] Chloride 102 98 - 107 mmol/L [facility] Total CO2 27 22 - 29 mmol/L [facility] Anion Gap 10 7 - 16 mmol/L [facility] Calcium 10.1 8.8 - 10.2 mg/dL [facility] Glucose Lvl 181(H) 82 - 100 mg/dL [facility] BUN 20 8 - 23 mg/dL [facility] Creatinine 1.08 0.67 - 1.30 mg/dL [facility] GFR Afr Am >60 [facility] Comment: GFR is estimated [...] or less GFR Non Afr Am >60 [facility] Blood specimen (specimen) UPPER LIMB STRUCTURE / Unknown 06/29/2014 11:00 AM EDT 06/29/2014 3:51 PM EDT Narrative [facility] - 06/29/2014 5:[address] fax results [phone] us Grady Von CHEMISTRY ORDERABLES Edited Resu lt - Final Performing Organization Address [facility]/ZIP Co de Phone Number [facility] [address] [place] [address] * SCANNED LABS (07/14/2010 12:00 AM EDT) Narrative 07/14/2010 11:04 AM EDT Procedure Note Unknown, U - 07/14/2010 1:09 PM EDT us U Unknown HEMATOLOGY ORDERABLES Final Resu lt * LDL, CALCULATED (03/27/2010 8:56 PM EDT) Pathologist [facility] LDL Calculated 146 mg/dL [facility] Comment: < 100 Optimal 100 - 129 Near or above optimal 130 - 159 Borderline High 160 - 189 High >= 190 Very High Blood specimen (specimen) 03/27/2010 8:56 PM EDT 03/27/2010 8:56 PM EDT Amanuel Staples MD CHEMISTRY ORDERABLES Final Result Performing Organization Address [facility] Co de Phone Number [facility] [address] [place] [address] * (ABNORMAL) LIPID PANEL REFLEX (03/27/2010 8:56 PM EDT) Cholesterol 224(H) <=200 mg/dL [facility] Comment: < 200 Desirable 200 - 239 Borderline High >= 240 High Triglyceride 180(H) <=150 mg/dL [facility] Comment: < 150 Normal 150 - 199 Borderline High 200 - 499 High >= 500 Very High HDL 42 >=40 mg/dL [facility] Comment: > 60 Optimal 40 - 60 Acceptable < 40 Low Blood specimen (specimen) 03/27/2010 8:56 PM EDT 03/27/2010 8:56 PM EDT Amanuel Staples MD CHEMISTRY ORDERABLES Final Result Performing Organization Address [facility]/ZIP Co de Phone Number [facility] [address] [place] [address] * AUTO DIFF (03/27/2010 8:56 PM EDT) Neut Percent 59.0 40.0 - 70.0 % [facility] Lymph Percent 29.2 17.0 - 46.0 % [facility] Milam Percent 8.9 4.0 - 12.0 % [facility] Eos Percent 2.4 0.0 - 6.0 % [facility] Baso Percent 0.5 0.0 - 2.0 % [facility] Neut# 3.5 1.8 - 7.7 x10(3)/mcL [facility] Lymph# 1.7 1.0 - 4.8 x10(3)/mcL [facility] Milam# 0.5 0.0 - 1.3 x10(3)/mcL [facility] Eos# 0.1 0.1 - 0.5 x10(3)/mcL [facility] Baso# 0.0 0.0 - 0.2 x10(3)/[facility] Blood specimen (specimen) 03/27/2010 8:56 PM EDT 03/27/2010 8:56 PM EDT us Amanuel Staples MD HEMATOLOGY ORDERABLES Final Result [facility] [address] [place] [address] * (ABNORMAL) CBC WITH AUTO DIFF (03/27/2010 8:56 PM EDT) Pathologist [facility] WBC 5.9 4.0 - 11.0 x10(3)/mcL [facility] RBC 4.50 4.50 - 5.90 x10(6)/mcL [facility] Hgb 15.7 13.5 - 17.1 gm/dL [facility] Hct 46.1 40.0 - 50.2 % [facility] MCV 102.5(H) 80.0 - 95.8 fL [facility] MCH 35.0(H) 27.0 - 33.2 pg [facility] MCHC 34.1 33.0 - 36.0 gm/dL [facility] RDW 13.2 11.5 - 14.5 % [facility] Platelet 168 150 - 400 x10(3)/mcL [facility] MPV 7.5 7.0 - 12.0 fL [facility] Blood specimen (specimen) 03/27/2010 8:56 PM EDT 03/27/2010 8:56 PM EDT Amanuel Staples MD HEMATOLOGY ORDERABLES Final Result Performing Organization Address [facility] de Phone Number [facility] [address] [place] [address] * THYROID STIMULATING HORMONE (03/27/2010 8:56 PM EDT) TSH 1.640 0.300 - 5.000 mcIU/mL [facility] Blood specimen (specimen) 03/27/2010 8:56 PM EDT 03/27/2010 8:56 PM EDT Amanuel Staples MD CHEMISTRY ORDERABLES Final Result Performing Organization Address [facility] de Phone Number [facility] [address] [place] [address] * (ABNORMAL) TESTOSTERONE LEVEL TOTAL (03/27/2010 8:56 PM EDT) Testosterone Lvl 170(L) 300 - 720 ng/dL [facility] Comment: Note: Reference range based on 8:00 AM standard. New reference range effective 10. Please direct any questions to . Blood specimen (specimen) 03/27/2010 8:56 PM EDT 03/27/2010 8:56 PM EDT Amanuel Staples MD CHEMISTRY ORDERABLES Final Result Performing Organization Address [facility] de Phone Number [facility] [address] [place] [address] * SCANNED OR REPORT STL (02/13/2010 12:00 [...] long-term (current) use of other medications 06/29/2014 senior living (current) use of anticoagulants Long-term (current) use of anticoagulants 06/29/2014 Foreign body (FB) in soft tissue Residual foreign body in soft tissue 04/22/2015 IVET (obstructive sleep apnea) Obstructive sleep apnea (adult) (pediatric) 05/13/2015 Type 2 diabetes mellitus without complication 05/13/2015 Obesity (BMI 30.0-34.9) Obesity, unspecified 05/13/2015 [...] Type 2 diabetes mellitus with complication, unspecified intermediate insulin use status 06/03/2017 Localized osteoarthritis of left knee 07/10/2017 Obstructive sleep apnea Obstructive sleep apnea (adult) (pediatric) 06/17/2018 Obesity (BMI 30.0-34.9) Obesity, unspecified 06/17/2018 Type 2 diabetes mellitus with complication, unspecified whether long term care phlebotomist insulin use 06/17/2018 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) 12/12/2018 Obstructive sleep apnea Obstructive sleep apnea (adult) (pediatric) 07/07/2019 Obesity (BMI 30.0-34.9) Obesity, unspecified 07/07/2019 Type 2 diabetes mellitus without complication, unspecified whether long term care phlebotomist insulin use 07/07/2019 Essential hypertension Unspecified essential hypertension 07/07/2019 Type 2 diabetes mellitus without complication, unspecified whether intermediate insulin use 07/12/2020 Essential hypertension Unspecified essential hypertension 07/12/2020 [...] 2 diabetes mellitus without complication, unspecified whether long term care phlebotomist insulin use 10/12/2020 Essential hypertension Unspecified essential hypertension 10/12/2020 [...] 2 diabetes mellitus without complication, unspecified whether long term care phlebotomist insulin use 08/10/2022 Essential hypertension Unspecified essential hypertension 08/10/2022 [...] (actinic keratosis) Actinic keratosis 09/23/2024 Care Teams Metal Bed Assembler Relationship Specialty Start Date End Date Sajan Alex MD PCP - General Family Medicine 01/25/22
--- OUTSIDE RECORDS SUMMARY | 2025-07-06 10:52 | XMS_ITS | Clinical Summary ---
Author Organization [facility] Address [address] [place] [address] Care Team Providers Care Rehabilitation Services Director Name Role Phone Pcp, No Primary Care [...] therelease of HIV test results or diagnoses. [id number] Health Allergies Active Allergy Reactions Criticality [...] Plan of [place] [address] [employer] CHOICE PPO MEDICARE Care Teams Rehabilitation Services Director Relationship Specialty Start Date End Date Pcp, No No Address PCP - General Pediatrics 01/15/19
== END 2025-07-05 23:59 ==
LOC: LAB.DROPOF 07-06 10:48
PROVIDERS: PCP Family Medicine; Visit Provider Family Medicine
DX: E11.9 Type 2 diabetes mellitus without complications (principal); E34.9 Endocrine disorder, unspecified; I10 Essential (primary) hypertension; Z12.5 Encounter for screening for malignant neoplasm of prostate; Z11.59 Encounter for screening for other viral diseases
CPT/HCPCS: 80053; 80061; 83036; 84403; 85025; 86803; 87340; 87389; G0103

== ENCOUNTER 2025-07-13 11:50 | Outpatient (CLI) | payer MEDICARE, SELFPAY ==
--- OUTSIDE RECORDS SUMMARY | 2025-07-15 23:11 | XMS_ITS | Encounter Summary ---
Author Organization [facility] Address [address] [place] [address] Care Team Providers Care Railroad Engineer Name Role Phone Amanuel Staples MD Primary Care Provider Yusuf Lind MD Primary Care Provider [phone] Stacia Bravo RN Unavailable [phone] Yobani Rosario MD Unavailable Oly Albert ARCHITECTURAL COATING FINISHER Unavailable [phone] Luiz Roberts MD Unavailable Rina Youssef ARCHITECTURAL COATING FINISHER Unavailable Unavailable Grady Longoria MD Unavailable [phone] Reason for Visit * Reason Onset Date Comments Questions 05/01/2013 Encounter Details Date Type Department Care Team (Late st Contact Info) Description 05/01/2013 Telephone [facility] [address] [facility] [address] [place] [address] Celeste Lange MD [address] [facility] [address] [place] [address] Questions Social History Tobacco Use [...] on filedocumented in this encounter Care Teams Railroad Engineer Relationship Specialty Start Date End Date Amanuel Staples MD [address] [place] [address] PCP - General Family Medicine 03/13/13 06/23/20 Yusuf Lind MD [address] [place] [address] PCP - General Internal Medicine 06/24/20 Stacia Bravo, JOANA [address] [place] [address] Registered Nurse 08/13/21 Yobani Rosario MD [address] [place] [address] [address] [place] [address] Critical Care Medicine 08/23/21 Oly Albert NP [address] [place] [address] [place] [address] Nurse Practitioner Nurse Practitioner, Acute Care 09/22/21 Luiz Roberts MD [address] [place] [address] [address] [place] [address] Interventional Cardiology 10/20/21 Rina Youssef NP [address] [place] [address] [address] [place] [address] Nurse Practitioner Nurse Practitioner, Acute Care 10/26/21 Grady Longoria MD [address] [facility] [address] [place] [address] Orthopedic Surgery 10/14/22 documented as of this encounter
--- OUTSIDE RECORDS SUMMARY | 2025-07-15 23:11 | XMS_ITS | Clinical Summary ---
Author Organization [facility] Address [address] [place] [address] Care Team Providers Care Gathering Machine Setter Name Role Phone Pcp, No Primary Care [...] therelease of HIV test results or diagnoses. [id number] Health Allergies Active Allergy Reactions Criticality Noted [...] Plan of Treatment [place] [address] [employer] PPO MEDICARE Care Teams Gathering Machine Setter Relationship Specialty Start Date End Date Pcp, No No Address PCP - General Pediatrics 01/15/19
--- OUTSIDE RECORDS SUMMARY | 2025-07-15 23:11 | XMS_ITS | Encounter Summary ---
Author Organization [facility] Address [address] [place] [address] Care Team Providers Care Od Grinder Operator Name Role Phone Yusuf Lind MD Primary Care Provider Stacia Bravo RN Unavailable [phone] Yobani Rosario MD Unavailable [phone] Oly Albert CLINICAL PROGRAM DIRECTOR Unavailable [phone] Luiz Roberts MD Unavailable [phone] Rina Youssef CLINICAL PROGRAM DIRECTOR Unavailable Unavailable Grady Longoria MD Unavailable [phone] Encounter Details Date Type Department Care Team (Late st Contact Info) Description 09/21/2021 E-Visit [facility] Information Desk [address] [place] [address] [id number] Mychart, Generic Provider Social History Tobacco Use [...] documented as of this encounter Care Teams Od Grinder Operator Relationship Specialty Start Date End Date Yusuf Lind MD [address] [place] [address] [address] [place] [address] PCP - General Internal Medicine 06/24/20 Stacia Bravo, JOANA [address] [facility] [address] Registered Nurse 08/13/21 Yobani Rosario MD [address] [place] [address]. [address] [place] [address] Critical Care Medicine 08/23/21 Oly Albert NP [address] [place] [address] Nurse Practitioner Nurse Practitioner, Acute Care 09/22/21 Luiz Roberts MD [address] [place] [address] [address] [place] [address] Interventional Cardiology 10/20/21 Rina Youssef NP [address] [place] [address] [address] [place] [address] Nurse Practitioner Nurse Practitioner, Acute Care 10/26/21 Grady Longoria MD [address] [place] [address] [place] [address] Orthopedic Surgery 10/14/22 documented as of this encounter
--- OUTSIDE RECORDS SUMMARY | 2025-07-15 23:11 | XMS_ITS | Clinical Summary ---
Author Organization [facility] Address [address] [place] [address] Care Team Providers Care Gas Check Pad Maker Name Role Phone Yusuf Lind MD Primary Care Provider [phone] Stacia Bravo RN Unavailable [phone] Yobani Rosario MD Unavailable Oly Albert CORRESPONDENCE CLERK Unavailable [phone] Luiz Roberts MD Unavailable Rina Youssef CORRESPONDENCE CLERK Unavailable Unavailable Grady Longoria MD Unavailable Allergies [...] Sars-Cov-2 Vaccine 1 2+yrs Old (PFIZER) 07/23/2022 [id number]-4 Vaccine 1 2+YRS Old (PFIZER Purple) 07/18/2021,07/18/2021,07/08/2021,2020,12/24/2020,12/08/2020,12/03/2020,0 [...] history exists Medical Devices Implanted Type Area Case Management Specialist Device Identifier Shelf Expiration Date Model / Serial / Lot Altrx Acetabular Liner 36mm Implanted:Qty: 1 on 07/06/2014 by Grady Longoria MD at [facility] Left: Hip 04/05/2019 1221-36-154 / / [id number] Pinn Sector W/Gription 54mm Implanted:Qty: 1 on 07/06/2014 by Grady Longoria MD at [facility] Left: Hip * J \T\ J DEPUY 06/06/2024 1217-32-054 / / [id number] Femoral Stem Tri-Lock 09/19 109mm Implanted:Qty: 1 on 07/06/2014 by Grady Longoria MD at [facility] Left: Hip * USE JJ DEPU 05/06/2024 1012-04-070 / / [id number] Hip Delta Cer Hd 09/19 36mm Implanted:Qty: 1 on 07/06/2014 by Grady Longoria MD at [facility] Left: Hip * J \T\ J DEPUY 03/06/2019 [id number] / / [id number] Hip Total Con Tier 3 Depuy Implanted:Qty: 1 on 07/06/2014 by Grady Longoria MD at [facility] Left: Hip * J \T\ J DEPUY HIPS TIER 3 / / TOTAL HIP Pinn Sector W/Gription 54mm Implanted:Qty: 1 on 09/19/2016 by Grady Longoria MD at [facility] Right: Hip * J \T\ J DEPUY 07/06/2026 1217-32-054 / / [id number] Altrx Acetabular Liner 36mm Implanted:Qty: 1 on 09/19/2016 by Grady Longoria MD at [facility] Right: Hip * J \T\ J DEPUY 07/06/2021 1221-36-154 / / [id number] Stem Fem Std Collar Corail 12 Implanted:Qty: 1 on 09/19/2016 by Grady Longoria MD at [facility] Right: Hip * J \T\ J DEPUY 07/06/2021 [id number] / / [id number] Hd Oxinium Fem 09/19 36 Mm -3 Implanted:Qty: 1 on 09/19/2016 by Grady Longoria MD at [facility] Right: Hip * SUN \T\ NEPHEW 07/24/2026 [id number] / / [id number] Procedures Procedure Name Priority Date/Time Associated Diagnosis [...] For additional information: [email or web address] BUN/Creatinine Ratio 18 [facility] Serum 08/15/2021 1:42 PM EST 08/15/2021 2:45 PM EST us Jairon Fu MD CHEMISTRY ORDERABLES Final Result Performing Organization Address [facility] Co de Phone Number [facility] [address] * (ABNORMAL) LIPID PROFILE (08/14/2021 4:46 AM EST) Chol/HDL Ratio 2.4 0 - 5 [facility]TERNAL [facility] Cholesterol 104(L) 125 - 199 mg/dL [facility] Comment: TOTAL CHOLESTEROL INTERPRETATION: Less than 200 mg/dL Desireable 200-239 mg/dL Borderline Greater or Equal to 240 mg/dL High LDL Calculated 48 0 - 100 mg/dL [facility] Comment: LDL CHOLESTEROL INTERPRETATION: Less [...] Rosario MD CHEMISTRY ORDERABLES F inal Result [facility] [address] * (ABNORMAL) HGB, A1C (GLYCOHEMOGLOBIN) (08/14/2021 4:46 AM EST) Hgb A1C 7.1(H) 4.0 - 5.6 % [facility] Comment: Reference Ranges for Hgb [...] Glycohemoglobin Standardization program (NGSP) and traceable to [facility]. Estimated Average Glucose 157(H) 68 - 114 mg/dL [facility] Whole Blood 08/14/2021 4:46 AM EST 08/15/2021 1:57 PM EST Jairon Fu MD CHEMISTRY ORDERABLES Final Result Performing Organization Address [facility] de Phone Number [facility] [address] from Last 3 Months or Most Recently Relevant to Health Maintenance Insurance [facility] MEDICARE [employer] MEDICARE [employer] [place] [address] [facility] MEDICARE [facility] Advance Directives For more information, please contact: [phone] * Full Code (Latest Code Status on File) Date Activated Date Inactivated Comments 08/13/2021 8:18 PM No automated c hest compression devices for VAD Patients * Full Code Date Activated Date Inactivated Comments 09/19/2016 9:55 AM 09/20/2016 4:07 PM * Full Code Date Activated Date Inactivated Comments 07/06/2014 10:42 AM 07/07/2014 7:06 PM Care Teams Gas Check Pad Maker Relationship Specialty Start Date End Date Yusuf Lind MD [address] [place] [address] [address] [place] [address] PCP - General Internal Medicine 06/24/20 Stacia Bravo, RN [address] [place] [id number] Registered Nurse 08/13/21 Yobani Rosario MD [address] [place] [address] [address] [place] [id number] Critical Care Medicine 08/23/21 Oly Albert NP [address] [place] [address] Nurse Practitioner Nurse Practitioner, Acute Care 09/22/21 Luiz Roberts MD [address] [place] [address] [address] [place] [address] Interventional Cardiology 10/20/21 Rina Youssef NP [address] [place] [address] Nurse Practitioner Nurse Practitioner, Acute Care 10/26/21 Grady Longoria MD [address] [facility] [place] [address] Orthopedic Surgery 10/14/22
--- OUTSIDE RECORDS SUMMARY | 2025-07-15 23:11 | XMS_ITS | Clinical Summary ---
Author Organization [facility] Address [address] [place], [place] [id number] Phone Care Team Providers Care Advertising Strategist Name Role Phone Outside, Provider Unavailable [phone] Conditions or Problems No information available. Medications No information available. Medications Administered No information available. Allergies, Adverse Reactions, Alerts No information available. Results No information available. Plan of Care No information available. Procedures No information available. Vital Signs No information available. Immunizations No information available. Advance Directives No information available.
== END 2025-07-13 23:59 | disposition home or self-care (01) ==
LOC: LAB.DROPOF 07-15 23:09
PROVIDERS: PCP Family Medicine; Visit Provider Family Medicine
DX: E11.9 Type 2 diabetes mellitus without complications (principal)
CPT/HCPCS: 82043; 82570